=== PATIENT | male | born 1930 | race Two or more races ===

== ENCOUNTER → 2016-03-01 | Outpatient (CLI) | payer MEDICARE ==
[2015-09-24 15:00] VITALS: BP 120/65
[~2016-03-01] MED LIST: CEPH-264 PO; CHOL100017 PO; HYDR-2679 PO; LANS1COM PO; PANT40TA5 PO; SULI200T2 PO; TAMS0.4C2 PO; TRAM50TA PO; TRIA1TAB3 PO
[2016-03-01 15:14] LABS: CALCIUM 8.5 mg/dL (8.5-10.1); CREATININE 1.9 mg/dL (0.7-1.3); POTASSIUM 3.4 mmol/L (3.5-5.1)
== END | disposition home or self-care (01) ==
LOC: LAB 14:26
PROVIDERS: ATTEND Nurse Practitioner Occupational Health
DX: N30.80 Other cystitis without hematuria (principal)
CPT/HCPCS: 36415; 80048

== ENCOUNTER 2016-04-10 08:24 | Inpatient (IN) | payer MEDICARE ==
[~2016-04-10] VITALS: Ht 172.7 cm; Wt 104.3 kg
[~2016-04-10 08:24] MED LIST changes: +CEFAZOLIN 1GM IVPB FOR OMNI 50 ML IV PRN; +FENTANYL PF 100 MCG/2 ML VIAL. IV PRN; +HYDROMORPHONE 2 MG/ML VIAL. IV PRN; +IV RINGERS,LACTATED 1000ML 1,000 ML IV SCH; +LIDOCAINE 1% 1 ML SYRINGE. ID PRN; +MORPHINE SULFATE 2 MG/ML DISP.SYRIN. IV PRN; +ONDANSETRON PF 4 MG/2 ML VIAL. IV PRN; +PROCHLORPERAZINE 10 MG/2 ML VIAL. IV PRN
[2016-04-10] MEDS ORDERED: PROPOFOL 20 ML IV ONE (08:53)
[2016-04-10] MEDS ORDERED: FENTANYL PF 100 MCG/2 ML VIAL. ONE (08:53)
[2016-04-10] MEDS ORDERED: LIDOCAINE 2% 100 MG/5 ML DISP.SYRIN. ONE (08:53)
--- NOTE | 2016-04-10 09:14 | PDOC ---
BRIEF OPERATIVE NOTE Date: Apr 10, 2016 Pre-Op Diagnosis BLE heel wounds Post-Op Diagnosis same Procedure Performed I and D; VAC to Bilateral heel wounds Surgeon Arthur Sousa Anesthesiologist [employer] Anesthesia Type: General Blood Loss 25mL Findings wound size dictated in op report Complications none BASSAM INFANTE II, MD Apr 10, 2016 09:14
[2016-04-10] MEDS ORDERED: HYDROCODONE/APAP 7.5/325MG TABLET. PO PRN (09:15)
[2016-04-10] MEDS ORDERED: MORPHINE SULFATE 2 MG/ML DISP.SYRIN. IV PRN (09:15)
[2016-04-10] MEDS ORDERED: MORPHINE SULFATE 4 MG/ML DISP.SYRIN. IV PRN (09:15)
[2016-04-10] MEDS ORDERED: CEFAZOLIN 2GM PREMIX 50 ML IV SCH (09:15)
[2016-04-10] MEDS ORDERED: DEXTROSE 50% 25 GM / 50ML DISP.SYRIN. IV PRN (09:15)
[2016-04-10] MEDS ORDERED: FENTANYL PF 100 MCG/2 ML VIAL. IV PRN (09:15)
[2016-04-10] MEDS ORDERED: VANCOMYCIN 1 GM in IV NORMAL SALINE 250ML 250 ML IV SCH (09:15)
[2016-04-10] MEDS ORDERED: ONDANSETRON PF 4 MG/2 ML VIAL. IV PRN (09:15)
[2016-04-10] MEDS ORDERED: POLYETHYLENE GLYCOL 3350 17 GM PACKET. PO PRN (09:15)
[2016-04-10] MEDS ORDERED: EPHEDRINE PF IN SALINE 50 MG/5 ML DISP.SYRIN. IV ONE (10:10)
[2016-04-10] MEDS ORDERED: SEVOFLURANE 16 TO 30 MINUTES. IH ONE (10:10)
[2016-04-10] MEDS ORDERED: VANCOMYCIN 2 GM in IV NORMAL SALINE 500ML BAG 500 ML IV ONE (14:00)
[2016-04-10 15:00] VITALS: BP 117/57
[2016-04-10] MEDS: SENNOSIDES/DOCUSATE 8.6/50MG TABLET. PO SCH (15:37)
[2016-04-10] MEDS: VANCOMYCIN PER PHARMACY MC PRN (15:47)
--- NOTE | 2016-04-10 17:06 | OP ---
DATE OF SURGERY: 04/10/2016 SURGEON: Uday Infante MD AUDIO/VIDEO TECHNICIAN: Leonarda Sousa. ANESTHESIA: General. PREOPERATIVE DIAGNOSIS: Bilateral heel wounds. POSTOPERATIVE DIAGNOSIS: Bilateral heel wounds. PROCEDURE PERFORMED: Irrigation and debridement of bilateral heel wounds, right was 5 cm x 6 cm x 1 cm deep, left was 4.5 cm x 5 cm x 1 cm deep. Wounds went down through fascia, but not to bone. BLOOD LOSS: 25 mL. SPECIMENS: Tissue and culture swabs were taken from each heel wound and sent off for culture. COMPLICATIONS: None. REASON FOR PROCEDURE: The patient is a very pleasant gentleman who I was asked to see in the wound care clinic for his full thickness heel wounds that developed. He had been receiving home health care and dressing changes. Unfortunately, he has progressed to full thickness areas of skin necrosis. I had a discussion with he and his daughter about the risks, benefits, alternatives of proceeding with the above surgery. DESCRIPTION OF PROCEDURE: The patient was greeted in the preoperative area by myself with the correct extremity sites were marked and verified. He was taken back to the operative suite. Antibiotics were held until after cultures. Now once in the OR, he was transferred gently supine to the OR table and secured to the bed with all pressure points padded. He had successful induction of general anesthesia. We then proceeded to prep and drape bilateral lower extremities with Betadine paint in our usual sterile fashion. We then conducted a standard preoperative timeout. I then began on the right side and used a combination of sharp excision as well as small rongeur and curette to debride the necrotic areas. These did not go down to bone. I performed the same on the left heel wound. After removing the necrotic appearing tissue, each wound was irrigated with 1500 mL of sterile normal saline. I then took my culture samples at that time. After this, I then fashioned the wound VAC sponge and used strips of the VAC adhesive to secure the VAC sponge in the wound bed at bilateral heels. I then created a small channel, one over his medial ankle for the suction tubing for the wound VAC. The wound VACs were turned on and I placed a couple more adhesive strips to ensure I had a good seal. After this was accomplished, we took down the drapes and cleansed his bilateral lower extremities. He was then awakened from anesthesia and transferred gently supine to the recovery room cart. All counts reported as correct x 2. No complications. Postop plan is to admit him to the floor. We will work on outpatient approval for the wound VACs. I did ask his primary care doctor to come by to assist with his postoperative management as well as Infectious Disease. UDAY INFANTE MD DR: PATTI/pam JOB#: [id number] / [id number] KEYUR
[2016-04-10 19:00] VITALS: BP 114/58
[2016-04-10] MEDS: OXYCODONE IR 5 MG TABLET. PO PRN (20:57)
[2016-04-10 23:24] VITALS: BP 124/64
[2016-04-11] VITALS (7 sets, daily range): BP systolic 99–132; BP diastolic 50–84
[2016-04-11] MEDS ORDERED: MAGNESIUM HYDROXIDE 2,400 MG/30 ML ORAL.SUSP. PO PRN (06:00)
[2016-04-11 07:12] LABS: HEMATOCRIT 27.5 % (39.0-53.0); HEMOGLOBIN 8.9 g/dL (13.0-17.5)
[2016-04-11] MEDS: SENNOSIDES/DOCUSATE 8.6/50MG TABLET. PO SCH (08:04)
[2016-04-11] MEDS: OXYCODONE IR 5 MG TABLET. PO PRN (08:04)
[2016-04-11] MEDS: ASPIRIN 325 MG TABLET PO SCH (08:04)
--- NOTE | 2016-04-11 08:32 | PDOC ---
ORTHO PROGRESS NOTES Subjective Little pain. No CP, SOB, cough. Tolerating diet. Vitals Vital Signs Date Time Temp Pulse Resp B/P Pulse Ox O2 Delivery O2 Flow Rate FiO2 04/11/16 08:04 14 04/11/16 07:00 97.7 58 110/52 98 Room Air 97.7 04/11/16 03:00 8.0 Labs Laboratory Tests Test 04/11/16 06:55 Hemoglobin 8.9g/dL (13.0-17.5) Hematocrit 27.5% (39.0-53.0) Mean Corpuscular Hemoglobin Concent 32g/dL (31-37) Laboratory Tests Test 04/11/16 06:55 Hemoglobin 8.9g/dL (13.0-17.5) Hematocrit 27.5% (39.0-53.0) Mean Corpuscular Hemoglobin Concent 32g/dL (31-37) Notes GPCs on gram stains A and A BLE: mild edema at ankles VAC in place at heels with good seal wiggles toes toes warm Assessment and Plan Awaiting VAC approval for home will await final cultures appreciate ID and PCP assistance BASSAM INFANTE II, MD Apr 11, 2016 08:32
[2016-04-11] MEDS: MULTIVITAMIN with MINERAL TABLET. PO SCH (09:47)
--- NOTE | 2016-04-11 11:28 | PDOC ---
Infectious Disease Note Vital Sign Vital Signs Vital Signs Date Time Temp Pulse Resp B/P Pulse Ox O2 Delivery O2 Flow Rate FiO2 04/11/16 11:04 97.8 62 18 108/53 98 Room Air 97.8 04/11/16 03:00 8.0 Labs Lab Laboratory Tests Test 04/11/16 06:55 Hemoglobin 8.9g/dL (13.0-17.5) Hematocrit 27.5% (39.0-53.0) Mean Corpuscular Hemoglobin Concent 32g/dL (31-37) Objective Assessment Phan calcaneal pressure wounds s/p debridement Sacral decub Debility HTN BPH Plan Plan of Care cont vanc off load both heels and sacrum pt need to go to rehab, is alone at home (daughter works ), is not going to be able to effective off load HEATHER HASKINS MD Apr 11, 2016 11:28
[2016-04-11] MEDS: VANCOMYCIN PER PHARMACY MC PRN (13:23)
[2016-04-11] MEDS ORDERED: VANCOMYCIN 1.5 GM in IV NORMAL SALINE 500ML BAG 500 ML IV SCH (14:00)
[2016-04-11] MEDS ORDERED: BISACODYL 10 MG SUPP.RECT PR PRN (16:00)
[2016-04-12] MEDS: HYDROCODONE/APAP 7.5/325MG TABLET. PO PRN (00:36)
--- NOTE | 2016-04-12 04:36 | CONS ---
DATE OF CONSULTATION: 04/11/2016 REQUESTING PHYSICIAN: Dr. Gibson. REASON FOR CONSULTATION: Bilateral heel wounds infected. HISTORY OF PRESENT ILLNESS: This is an 85-year-old gentleman, with a history of hypertension, debility, arthritis, and benign prostatic hypertrophy. The patient was admitted with bilateral heel wounds, underwent I and D of the bilateral heel wounds, and it was not to the bone. The patient has bilateral heel wound VACs. The patient also has large pressure changes in the sacrococcygeal area and the patient has a chronic Tamez catheter for retention. The patient is currently started on vancomycin and consult has been requested. The patient denies any nausea, vomiting, diarrhea. Denies any chest pain, shortness of breath, abdominal pain, urinary symptoms or bowel symptoms. PAST MEDICAL HISTORY: Positive for hypertension, osteoarthritis with bilateral knee replacement done, bilateral heel wounds. He has not walked for 1 month. He says although he is alone at home when daughter goes to work and he says he walks with a walker to go to the bathroom, etc. SOCIAL HISTORY: Negative for smoking, alcohol, illicit drug use. ALLERGIES: No known drug allergies. CURRENT MEDICATIONS: Reviewed. The patient is on vancomycin. REVIEW OF SYSTEMS: Mostly per the HPI. All other systems reviewed are negative. PHYSICAL EXAMINATION: GENERAL: Alert, oriented gentleman, not in any distress. VITAL SIGNS: Stable, afebrile. HEENT: NAD. NECK: Supple, no JVP, no lymphadenopathy. LUNGS: Clear. HEART: S1, S2 regular. ABDOMEN: Benign. EXTREMITIES: No edema or cyanosis. The patient does have bilateral heel wounds, now with a wound VAC in place. Extensive skin breakdown with pressure changes on sacrococcygeal area. SKIN: Rest of the skin examination unremarkable. NEUROLOGIC: Intact. LABORATORY DATA: White count is normal. BUN 24, creatinine 1.9. Urinalysis: 11-20 wbc's. Heel culture is growing Gram-positive cocci. IMPRESSION: 1. Bilateral heel wounds, pressure wounds, with infection, status post debridement. It is not to the bone as per the operative report. 2. Sacral decubitus, extensive. 3. Debility. 4. Hypertension. 5. Benign prostatic hypertrophy. RECOMMENDATIONS: I would continue vancomycin for the time being, although with the caution of having renal insufficiency as soon as tomorrow we know whether is Staph aureus or MRSA. If not, then we will change. The patient needs a wound VAC offload to the both heels as well as to the sacrococcygeal area. That requires that he will not be able to do much at home and being alone when daughter goes to work; may not be a proper situation unless they have a lot more help at home. We will continue to follow. Thank you very much, Dr. Gibson, for giving me the opportunity to participate in this patient's care. HEATHER HASKINS MD DR: MARIE/pam JOB#: [id number] / [id number]
[2016-04-12 07:00] VITALS: BP 110/53
[2016-04-12] MEDS: ASPIRIN 325 MG TABLET PO SCH (08:14)
[2016-04-12] MEDS: SENNOSIDES/DOCUSATE 8.6/50MG TABLET. PO SCH (08:14)
[2016-04-12] MEDS: MULTIVITAMIN with MINERAL TABLET. PO SCH (08:14)
[2016-04-12 11:03] VITALS: BP 97/44
--- NOTE | 2016-04-12 11:14 | PDOC ---
Infectious Disease Note Subjective Subjective feeling ok ROS ROS no n/v/d/pain Vital Sign Vital Signs Vital Signs Date Time Temp Pulse Resp B/P Pulse Ox O2 Delivery O2 Flow Rate FiO2 04/12/16 11:03 97.4 60 18 97/44 96 Room Air 97.4 Physical Exam PHYSICAL EXAM GENERAL: NAD, Alert HEENT: PERRL, OC/OP NECK: Supple, no JVD, no LN LUNGS: Clear HEART: S1S2, no gallop, no murmur ABD: Soft, NT, no organomegaly, no rebound EXT: No edema, no cyanosis phan calcaneal wounds OCCUPATIONAL THERAPY INSTRUCTOR: Alert, oriented x 3, no focal neurologic deficit SKIN: No rash,,sacral wound IV: ok Objective Assessment Phan calcaneal pressure wounds s/p debridement Sacral decub Debility HTN BPH Plan Plan of Care change antibiotics to po vantin off load both heels and sacrum pt need to go to rehab, is alone at home (daughter works ), is not going to be able to effective off load pt refuses to go to rehab, this wounds will not heal with what pt does at home ( not doing off load ) HEATHER HASKINS MD Apr 12, 2016 11:14
[2016-04-12] MEDS: CEFPODOXIME PROXETIL 100 MG TABLET PO SCH ×2 (12:29→21:05)
[2016-04-12 14:18] LABS: CREATININE 1.6 mg/dL (0.7-1.3); GFR 41.5
[2016-04-12 14:42] VITALS: BP 100/59
[2016-04-12 19:00] VITALS: BP 105/50
--- NOTE | 2016-04-12 20:28 | PDOC ---
ORTHO PROGRESS NOTES Subjective Doing well, no complaints Vitals Vital Signs Date Time Temp Pulse Resp B/P Pulse Ox O2 Delivery O2 Flow Rate FiO2 04/12/16 19:00 97.8 76 18 105/50 96 Room Air 97.8 Labs Laboratory Tests Test 04/11/16 06:55 04/12/16 13:25 Hemoglobin 8.9g/dL (13.0-17.5) Hematocrit 27.5% (39.0-53.0) Mean Corpuscular Hemoglobin Concent 32g/dL (31-37) Creatinine 1.6mg/dL (0.7-1.3) Estimated GFR (Cockcroft-Gault) 41.5 Laboratory Tests Test 04/12/16 13:25 Creatinine 1.6mg/dL (0.7-1.3) Estimated GFR (Cockcroft-Gault) 41.5 Notes Cxs reviewed A and A BLE: no new wounds VAC in place Assessment and Plan placement VAC approval pending BASSAM INFANTE II, MD Apr 12, 2016 20:28
[2016-04-12 23:30] VITALS: BP 120/49
[2016-04-13 03:28] VITALS: BP 113/56
[2016-04-13 07:00] VITALS: BP 111/48
--- NOTE | 2016-04-13 09:07 | PDOC ---
ORTHO PROGRESS NOTES Subjective Little pain, no new complaints. Vitals Vital Signs Date Time Temp Pulse Resp B/P Pulse Ox O2 Delivery O2 Flow Rate FiO2 04/13/16 07:00 97.8 53 16 111/48 96 Room Air 97.8 04/12/16 20:00 8.0 Labs Laboratory Tests Test 04/12/16 13:25 Creatinine 1.6mg/dL (0.7-1.3) Estimated GFR (Cockcroft-Gault) 41.5 Laboratory Tests Test 04/12/16 13:25 Creatinine 1.6mg/dL (0.7-1.3) Estimated GFR (Cockcroft-Gault) 41.5 Notes A and A BLE: VAc in place with good seal Assessment and Plan awaiting VAc approval and placement BASSAM INFANTE II, MD Apr 13, 2016 09:07
--- NOTE | 2016-04-13 09:47 | PDOC ---
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
[2016-04-13] MEDS: CEFPODOXIME PROXETIL 100 MG TABLET PO SCH ×2 (09:51→19:55)
[2016-04-13] MEDS: MULTIVITAMIN with MINERAL TABLET. PO SCH (09:51)
[2016-04-13] MEDS: ASPIRIN 325 MG TABLET PO SCH (09:51)
[2016-04-13] MEDS: SENNOSIDES/DOCUSATE 8.6/50MG TABLET. PO SCH (09:56)
[2016-04-13 11:14] VITALS: BP 112/48
[2016-04-13 15:00] VITALS: BP 115/50
[2016-04-13 19:00] VITALS: BP 115/54
[2016-04-13 23:00] VITALS: BP 124/67
[2016-04-14 07:36] VITALS: BP 115/53
--- NOTE | 2016-04-14 08:27 | DISCH ---
DISCHARGE INSTRUCTIONS Condition on Discharge Condition on Discharge: Stable Activity After Discharge Activity Instructions for Disc: Other, see below Other activity instructions: avoid unnecessary walking Diet after Discharge Diet after Discharge: Regular Wound Incision Care Wound/Incision Care: Keep wound elevated, Other, see below Other wound/incision instructi: wound VAC changes 2-3 times per week Contacting the DRBrenda after DC Call your doctor for: Concerns you may have Follow-Up Follow up with: Arthur in 10-12 days BASSAM INFANTE II, MD Apr 14, 2016 08:27
--- NOTE | 2016-04-14 08:29 | PDOC ---
ORTHO PROGRESS NOTES Subjective Some pain with repositioning, but otherwise no new complaints. Vitals Vital Signs Date Time Temp Pulse Resp B/P Pulse Ox O2 Delivery O2 Flow Rate FiO2 04/14/16 07:36 97.7 62 17 115/53 98 Room Air 97.7 04/13/16 20:00 8.0 Labs Laboratory Tests Test 04/12/16 13:25 Creatinine 1.6mg/dL (0.7-1.3) Estimated GFR (Cockcroft-Gault) 41.5 Notes A and A BLE: no new edema VAC in place at heels with good seal Assessment and Plan awaiting placement and VAC approval, OK to go otherwise BASSAM INFANTE II, MD Apr 14, 2016 08:29
[2016-04-14] MEDS: MULTIVITAMIN with MINERAL TABLET. PO SCH (08:39)
[2016-04-14] MEDS: ASPIRIN 325 MG TABLET PO SCH (08:39)
[2016-04-14] MEDS: CEFPODOXIME PROXETIL 100 MG TABLET PO SCH ×2 (08:39→21:13)
[2016-04-14] MEDS: SENNOSIDES/DOCUSATE 8.6/50MG TABLET. PO SCH (08:39)
--- NOTE | 2016-04-14 10:34 | PDOC ---
Infectious Disease Note Subjective Subjective feeling ok ROS ROS GEN: Denies fevers, chills, sweats HEENT: Denies blurred vision, sore throat CV: Denies chest pain RESP: Denies shortness of air, cough GI: Denies n/v/d NEURO: Denies confusion, dizziness MSK: Denies weakness, joint pain/swelling Vital Sign Vital Signs Vital Signs Date Time Temp Pulse Resp B/P Pulse Ox O2 Delivery O2 Flow Rate FiO2 04/14/16 08:00 Room Air 04/14/16 07:36 97.7 62 17 115/53 98 97.7 04/13/16 20:00 8.0 Physical Exam PHYSICAL EXAM GENERAL: NAD, Alert HEENT: PERRL, OC/OP NECK: Supple, no JVD, no LN LUNGS: Clear HEART: S1S2, no gallop, no murmur ABD: Soft, NT, no organomegaly, no rebound EXT: No edema, no cyanosis 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
[2016-04-14 11:25] VITALS: BP 121/62
[2016-04-14 14:59] VITALS: BP 100/38
[2016-04-14 19:00] VITALS: BP 105/43
[2016-04-14 23:00] VITALS: BP 121/68
[2016-04-15 03:00] VITALS: BP 118/59
[2016-04-15 07:00] VITALS: BP 128/58
[2016-04-15] MEDS: CEFPODOXIME PROXETIL 100 MG TABLET PO SCH ×2 (08:36→21:10)
[2016-04-15] MEDS: ASPIRIN 325 MG TABLET PO SCH (08:37)
[2016-04-15] MEDS: SENNOSIDES/DOCUSATE 8.6/50MG TABLET. PO SCH (08:37)
[2016-04-15] MEDS: MULTIVITAMIN with MINERAL TABLET. PO SCH (08:37)
--- NOTE | 2016-04-15 10:21 | PDOC ---
ORTHO PROGRESS NOTES Subjective No complaints. No acute events Vitals Vital Signs Date Time Temp Pulse Resp B/P Pulse Ox O2 Delivery O2 Flow Rate FiO2 04/15/16 07:00 98.0 63 22 128/58 98 Room Air 98.0 Notes A and A BLE: edema unchanged VAC in place with good seal at heels Assessment and Plan awaiting placement, ok to go once bed available BASSAM INFANTE II, MD Apr 15, 2016 10:21
[2016-04-15 11:00] VITALS: BP 92/60
[2016-04-15 15:00] VITALS: BP 116/74
[2016-04-15 19:59] VITALS: BP 124/61
[2016-04-15] MEDS: HYDROCODONE/APAP 7.5/325MG TABLET. PO PRN (21:10)
[2016-04-15 23:59] VITALS: BP 102/43
[2016-04-16 03:59] VITALS: BP 110/47
[2016-04-16 07:00] VITALS: BP 92/60
[2016-04-16] MEDS: ASPIRIN 325 MG TABLET PO SCH (08:33)
[2016-04-16] MEDS: CEFPODOXIME PROXETIL 100 MG TABLET PO SCH ×2 (08:33→21:01)
[2016-04-16] MEDS: MULTIVITAMIN with MINERAL TABLET. PO SCH (08:33)
[2016-04-16] MEDS: SENNOSIDES/DOCUSATE 8.6/50MG TABLET. PO SCH (08:33)
--- NOTE | 2016-04-16 10:04 | PDOC ---
ORTHO PROGRESS NOTES Subjective No complaints. Vitals Vital Signs Date Time Temp Pulse Resp B/P Pulse Ox O2 Delivery O2 Flow Rate FiO2 04/16/16 07:00 97.4 78 22 92/60 98 Room Air 97.4 Notes Resting, awakens BLE: no edema VAC in place with good seal Assessment and Plan awaiting placement BASSAM INFANTE II, MD Apr 16, 2016 10:04
[2016-04-16 11:00] VITALS: BP 120/63
[2016-04-16 14:37] VITALS: BP 94/62
[2016-04-16 19:00] VITALS: BP 110/53
[2016-04-16 23:00] VITALS: BP 115/54
[2016-04-17] VITALS (7 sets, daily range): BP systolic 115–144; BP diastolic 48–61
[2016-04-17] MEDS: MULTIVITAMIN with MINERAL TABLET. PO SCH (08:10)
[2016-04-17] MEDS: ASPIRIN 325 MG TABLET PO SCH (08:10)
[2016-04-17] MEDS: SENNOSIDES/DOCUSATE 8.6/50MG TABLET. PO SCH (08:10)
[2016-04-17] MEDS: CEFPODOXIME PROXETIL 100 MG TABLET PO SCH ×2 (08:10→21:22)
[2016-04-17] MEDS: HYDROCODONE/APAP 7.5/325MG TABLET. PO PRN ×2 (11:19→21:25)
[2016-04-18 03:00] VITALS: BP 106/55
[2016-04-18 07:00] VITALS: BP 115/52
--- NOTE | 2016-04-18 08:14 | PDOC ---
ORTHO PROGRESS NOTES Subjective No complaints, pain ok Vitals Vital Signs Date Time Temp Pulse Resp B/P Pulse Ox O2 Delivery O2 Flow Rate FiO2 04/18/16 07:00 97.7 55 18 115/52 94 Room Air 97.7 04/17/16 12:19 8.0 Notes A and A BLE: edema unchanged VAC in place with good seal Assessment and Plan home with [facility] today BASSAM INFANTE II, MD Apr 18, 2016 08:14
[2016-04-18] MEDS: MULTIVITAMIN with MINERAL TABLET. PO SCH (09:44)
[2016-04-18] MEDS: ASPIRIN 325 MG TABLET PO SCH (09:44)
[2016-04-18] MEDS: SENNOSIDES/DOCUSATE 8.6/50MG TABLET. PO SCH (09:44)
[2016-04-18] MEDS: CEFPODOXIME PROXETIL 100 MG TABLET PO SCH (09:44)
[2016-04-18 10:36] VITALS: BP 129/81
--- NOTE | 2016-04-18 12:57 | PDOC3 ---
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 Schmidt is a 85 old male who was asked to see in consultation down in the wound care clinic. After reviewing the radiographic evidence and performing physical examination a discussion with him and his daughter about proceeding with a formal irrigation and debridement in the operating room with application of wound VAC. They agreed. He tolerated surgery well recovered well from anesthesia. He was taken up to the surgical for for care and observation. Infectious disease was consulted and managed his antibiotics. We will follow his cultures. His hospital course was uneventful. He was in the hospital 8 days secondary to placement and wound VAC for home use issues. He remained hemodynamically stable and afebrile. His pain was controlled on oral pain medicine. His sacral wound had improved in appearance. He received wound VAC changes every other day with our wound care team. He was having normal bowel and bladder function. Discharge Information Condition at Discharge: Stable Follow Up: Weeks Disposition/Orders: D/C to Home w/ HH No Active Prescriptions or Reported Meds Patient Instructions Patient Instructions He'll be discharged home with home healthcare. Home health care will be necessary for wound VAC changes. He'll follow-up at the wound care clinic as well as myself in approximately 2 weeks' time. BASSAM INFANTE II, MD Apr 18, 2016 12:57
[2016-04-18 15:07] VITALS: BP 113/52
[2016-04-18] MEDS ORDERED: HYDR-2679 PO (16:11)
--- NOTE | 2016-04-18 18:18 | HP ---
ADMIT DATE: 04/10/2016 CHIEF COMPLAINT: Bilateral heel wounds. HISTORY OF PRESENT ILLNESS: The patient is a very pleasant 85-year-old gentleman with a history of hypertension, who developed heel wounds over a month ago. He was seen and managed in the outpatient wound care clinic, but they felt due to the depth of the wounds and recalcitrant that formal I and D will be necessary. I had a discussion of this with the patient and his daughter, and they elected to proceed. PAST MEDICAL HISTORY: 1. Hypertension. 2. Osteoarthritis. 3. Bilateral total knees. 4. Bilateral heel wounds. 5. Sacral pressure sore. SOCIAL HISTORY: No alcohol or tobacco. He does not ambulate much at all but will walk with a walker to go to the rest room occasionally. ALLERGIES: ____ MEDICATIONS: 1. Cefpodoxime. 2. Multivitamin. 3. Aspirin. 4. Senokot. 5. Lortab. 6. Oxycodone p.r.n. REVIEW OF SYSTEMS: Twelve point review of systems negative except as per HPI. PHYSICAL EXAMINATION: GENERAL: The patient is alert and oriented, in no acute distress. Mood and affect are appropriate. He is examined lying in hospital bed. HEENT: Head normocephalic, atraumatic. Extraocular muscles are intact. CARDIOVASCULAR: Regular rate and rhythm. Dorsalis pedis 1+ and symmetric. RESPIRATIONS: Unlabored with symmetric chest. ABDOMEN: Soft and nondistended. He has a Tamez catheter in place. EXTREMITIES: Examination of bilateral lower extremities reveals full thickness wounds over both heels with wound VACs in place. The wounds go down past fascia. He does have some mild edema of bilateral lower extremities down to the distal third tibial region. IMPRESSION: Bilateral heel wounds. PLAN: He is to be discharged home with home health care. He will need wound VAC changes 3-4 times per week. He will be maintained on antibiotics per Infectious Disease. He will follow up with myself and wound care after this hospitalization. BASSAM INFANTE MD DR: PATTI/pam JOB#: [id number] / [id number] KEYUR
== END 2016-04-18 16:20 | disposition home health service (06) | DRG 570 ==
LOC: SURG 08:24 → 5 SOUTH 12:40
PROVIDERS: ADMIT Orthopaedic Surgery Sports Medicine; ATTEND Orthopaedic Surgery Sports Medicine
PROC: 0JBR0ZZ Excision of Left Foot Subcutaneous Tissue and Fascia, Open Approach (ICD-10-PCS; 2016-04-10)
PROC: 0JBQ0ZZ Excision of Right Foot Subcutaneous Tissue and Fascia, Open Approach (ICD-10-PCS; principal; 2016-04-10 10:05)
DX: L89.624 Pressure ulcer of left heel, stage 4 (principal); I10 Essential (primary) hypertension; Z96.653 Presence of artificial knee joint, bilateral; N40.0 Benign prostatic hyperplasia without lower urinary tract symptoms; Z79.899 Other long term (current) drug therapy; L89.610 Pressure ulcer of right heel, unstageable; L89.159 Pressure ulcer of sacral region, unspecified stage
CPT/HCPCS: 36415; 82565; 85014; 85018; 87071; 87075; 87186; 87205; J0690; J2405; J2704; J3010; J3370; J7040; 97530; 97606

== ENCOUNTER → 2016-05-19 | Outpatient (CLI) | payer MEDICARE ==
[~2016-05-19] MED LIST changes: -CEFAZOLIN 1GM IVPB FOR OMNI 50 ML IV PRN; -FENTANYL PF 100 MCG/2 ML VIAL. IV PRN; -HYDROMORPHONE 2 MG/ML VIAL. IV PRN; -IV RINGERS,LACTATED 1000ML 1,000 ML IV SCH; -LIDOCAINE 1% 1 ML SYRINGE. ID PRN; -MORPHINE SULFATE 2 MG/ML DISP.SYRIN. IV PRN; -ONDANSETRON PF 4 MG/2 ML VIAL. IV PRN; -PROCHLORPERAZINE 10 MG/2 ML VIAL. IV PRN
[2016-05-19 10:00] LABS: BASO # 0.1 x10^3/uL (0.0-0.2); BASO % 1 % (0-3); EOS % 7 % (0-3); HEMATOCRIT 33.1 % (39.0-53.0); HEMOGLOBIN 10.9 g/dL (13.0-17.5); LYMPH # 1.9 x10^3/uL (1.0-4.8); LYMPH % 24 % (24-48); MEAN CORPUSCULAR HEMOGLOBIN 29 pg (25-35); MEAN CORPUSCULAR HGB CONC 33 g/dL (31-37); MEAN CORPUSCULAR VOLUME 87 fL (79-100); MONO % 7 % (0-9); NEUT % 61 % (31-73); PLATELET COUNT 331 x10^3/uL (140-400); RED BLOOD COUNT 3.79 x10^6/uL (4.30-5.70); RED CELL DISTRIBUTION WIDTH 13.4 % (11.5-14.5); WHITE BLOOD COUNT 8.1 x10^3/uL (4.0-11.0)
[2016-05-19 10:18] LABS: CALCIUM 8.8 mg/dL (8.5-10.1); CREATININE 1.6 mg/dL (0.7-1.3); GFR 41.5; POTASSIUM 3.8 mmol/L (3.5-5.1)
== END | disposition home or self-care (01) ==
LOC: PMGWOUND 08:08
PROVIDERS: ATTEND Preventive Medicine Undersea and Hyperbaric Medicine
DX: L89.624 Pressure ulcer of left heel, stage 4 (principal); L89.614 Pressure ulcer of right heel, stage 4; L89.153 Pressure ulcer of sacral region, stage 3; I10 Essential (primary) hypertension; Z87.891 Personal history of nicotine dependence
CPT/HCPCS: 11043; 36415; 80048; 85027; 85651; 87040

== ENCOUNTER → 2016-05-26 | Outpatient (CLI) | payer MEDICARE | END | disposition home or self-care (01) | LOC: PMGWOUND 08:09 | PROVIDERS: ATTEND Preventive Medicine Undersea and Hyperbaric Medicine | DX: L89.153 Pressure ulcer of sacral region, stage 3 (principal); L89.624 Pressure ulcer of left heel, stage 4; L89.614 Pressure ulcer of right heel, stage 4; M86.172 Other acute osteomyelitis, left ankle and foot; I10 Essential (primary) hypertension; Z87.891 Personal history of nicotine dependence | CPT/HCPCS: 11042; 11043; 11046; 97605 ==

== ENCOUNTER → 2016-06-02 | Outpatient (CLI) | payer MEDICARE | END | disposition home or self-care (01) | LOC: PMGWOUND 08:07 | PROVIDERS: ATTEND Preventive Medicine Undersea and Hyperbaric Medicine | DX: L89.624 Pressure ulcer of left heel, stage 4 (principal); L89.614 Pressure ulcer of right heel, stage 4; L89.153 Pressure ulcer of sacral region, stage 3; M86.172 Other acute osteomyelitis, left ankle and foot; I10 Essential (primary) hypertension; Z87.891 Personal history of nicotine dependence | CPT/HCPCS: 97597 ==

== ENCOUNTER → 2016-06-16 | Outpatient (CLI) | payer BC | END | disposition home or self-care (01) | LOC: PMGWOUND 08:29 | PROVIDERS: ATTEND Preventive Medicine Undersea and Hyperbaric Medicine | DX: L89.624 Pressure ulcer of left heel, stage 4 (principal); L89.614 Pressure ulcer of right heel, stage 4; L89.153 Pressure ulcer of sacral region, stage 3; M86.172 Other acute osteomyelitis, left ankle and foot; I10 Essential (primary) hypertension; Z87.891 Personal history of nicotine dependence | CPT/HCPCS: 99215 ==

== ENCOUNTER → 2016-06-23 | Outpatient (CLI) | payer BC | END | disposition home or self-care (01) | LOC: PMGWOUND 08:33 | PROVIDERS: ATTEND Preventive Medicine Undersea and Hyperbaric Medicine | DX: L89.624 Pressure ulcer of left heel, stage 4 (principal); L89.614 Pressure ulcer of right heel, stage 4; M86.172 Other acute osteomyelitis, left ankle and foot; I10 Essential (primary) hypertension; Z87.891 Personal history of nicotine dependence | CPT/HCPCS: 99215 ==

== ENCOUNTER 2016-06-29 09:54 | Day surgery (SDC) | payer BC ==
[~2016-06-29] VITALS: Ht 177.8 cm; Wt 104.3 kg
[~2016-06-29 09:54] MED LIST changes: +HYDROmorphone 2 MG/ML VIAL IV PRN; +IV RINGERS,LACTATED 1000ML 1,000 ML IV SCH; +LIDOCAINE 1% 1 ML SYRINGE. ID PRN; +MORPHINE SULFATE 2 MG/ML DISP.SYRIN. IV PRN; +ONDANSETRON PF 4 MG/2 ML VIAL. IV PRN; +PROCHLORPERAZINE 10 MG/2 ML VIAL. IV PRN; +fentaNYL PF VIAL 100 MCG/2 ML VIAL IV PRN
[2016-06-29] MEDS ORDERED: PROPOFOL 20 ML IV ONE (11:46)
[2016-06-29] MEDS ORDERED: ONDANSETRON PF 4 MG/2 ML VIAL. ONE (11:46)
[2016-06-29] MEDS ORDERED: LIDOCAINE 2% 100 MG/5 ML SYRINGE. ONE (11:46)
[2016-06-29] MEDS ORDERED: DEXAMETHASONE SOD PHOS 20 MG/5 ML VIAL. ONE (11:46)
[2016-06-29] MEDS ORDERED: fentaNYL PF VIAL 100 MCG/2 ML VIAL ONE (11:46)
--- NOTE | 2016-06-29 11:48 | DISCH ---
DISCHARGE INSTRUCTIONS Condition on Discharge Condition on Discharge: Stable Activity After Discharge Activity Instructions for Disc: Other, see below Bathing Instructions: Shower-keep dressing dry Weight Bearing Status after Di: Non weight bearing Diet after Discharge Diet after Discharge: Regular Wound Incision Care Wound/Incision Care: Keep wound/cast CDI, Keep wound elevated, Change dressing Contacting the DRBrenda after DC Call your doctor for: Concerns you may have Follow-Up Follow up with: wound care Follow Up With: Arthur in 2wks BASSAM INFANTE II, MD June 29, 2016 11:48
--- NOTE | 2016-06-29 11:50 | PDOC ---
BRIEF OPERATIVE NOTE Date: June 29, 2016 Pre-Op Diagnosis bilateral heel wounds Post-Op Diagnosis same Procedure Performed I and D, bone biopsies, bilateral heels Surgeon Arthur Anesthesiologist [facility] Anesthesia Type: General Blood Loss 20mL Specimens Obtained bone from each heel for Cx and Path Complications none BASSAM INFANTE II, MD June 29, 2016 11:50
[2016-06-29] MEDS ORDERED: ePHEDrine PF IN SALINE 50 MG/5 ML DISP.SYRIN IV ONE (12:08)
[2016-06-29] MEDS ORDERED: SEVOFLURANE 16 TO 30 MINUTES. IH ONE (12:22)
[2016-06-29] MEDS ORDERED: HYDR-971 PO (13:20)
--- NOTE | 2016-06-29 13:25 | OP ---
DATE OF SURGERY: 06/29/2016 SURGEON: Uday Infante MD TEXTURE ARTIST: None. PREOPERATIVE DIAGNOSIS: Bilateral chronic heel wounds. POSTOPERATIVE DIAGNOSIS: Bilateral chronic heel wounds. PROCEDURE PERFORMED: 1. Bone biopsy, bilateral heels. 2. Irrigation and debridement, bilateral heels. SPECIMENS SENT: Bone from each heel was sent for pathology and bone from each heel was sent for culture. COMPLICATIONS: None. ESTIMATED BLOOD LOSS: 20 mL. ANESTHESIA: General. REASON FOR PROCEDURE: The patient is a very pleasant 85-year-old gentleman who I have been following for his bilateral posterior heel wounds. These have had good granulation tissue; however, his infectious disease specialist from wished for repeat biopsies and cultures. I discussed risks, benefits, and alternatives of above surgery with he and his daughter and they elected to proceed. DESCRIPTION OF PROCEDURE: The patient was greeted in the preoperative area by myself. Correct extremity was marked and verified. He was taken to the operative suite and antibiotics were started en route. Once in the OR, he was transferred gently supine to the OR table and secured to the bed with all pressure points padded. After undergoing successful general anesthesia, we then proceeded to prep and drape bilateral lower extremities with Betadine paint. After this, we conducted a standard preoperative timeout. I then began at the right heel using a rongeur, took a sample of bone for culture and for permanent pathology specimen. I then repeated this through his wound at the left heel. We then irrigated these out with a combination of 3000 mL sterile normal saline and used both. We then washed and dried his legs, placed Xeroform, sterile gauze, sterile cast padding and Oj wrap for loose well-padded dressing on both. His wounds do not have any necrotic debris and I did not feel they required much debridement, but I did debride the edges a little bit just down to skin. I used a rongeur and curette for this. At the conclusion of surgery, the patient was transferred gently supine to the recovery room cart and taken to PACU in stable and extubated condition. Postop plan is to follow up on the cultures and pathology specimens. He will be discharged home. It should be noted that after obtaining the bone samples, antibiotics were given. UDAY INFANTE MD DR: PATTI/pam JOB#: [id number] / [id number] KEYUR
[2016-06-29] MEDS ORDERED: HYDROcodone/APAP 5/325MG 1 TAB TABLET PO ONE (13:30)
[2016-06-29 13:45] VITALS: BP 132/39
--- NOTE | 2016-07-03 13:31 | PATHOLOGY ---
PATHOLOGY REPORT * * * * * * * * FINAL DIAGNOSIS: A. Bone biopsy, left heel: - Segment of viable bone-no evidence of osteomyelitis. B. Bone biopsy, right heel: - Segment of viable bone-no evidence of osteomyelitis. (JPM:; d/t: 07/03/16) REPORT ELECTRONICALLY SIGNED BY: Renaldo Lara M.D. DATE/TIME: 07/03/2016 13:22 * * * * * * * * GROSS PATHOLOGY: A. The specimen is received in formalin, labeled "Randy Schmidt, bone left heel". Received is a single gritty, pale alanis segment of bone measuring 0.4 cm. The specimen is entirely submitted in cassette A1, following decalcification. B. The specimen is received in formalin, labeled "Randy Schmidt, bone right heel". Received is a single gritty, pale alanis segment of bone measuring 0.4 cm. The specimen is entirely submitted in cassette B1, following decalcification. (SNA; 06/30/2016) INITIAL CPT CODE(S): 58381(2), 29503(2) Professional services performed [place] [place] [address] Technical services performed by [facility] at [address] [place] [address], [facility] [address] [address]. SPECIMEN(S) RECEIVED: A.Bone, left heel B.Bone, right heel CLINICAL HISTORY: None provided PATIENT: RANDY SCHMIDT /AGE: [id number] (Age: 85) PATIENT #: [id number] ALT CASE #: SPECIMEN COLLECTION DATE: 06/29/2016 SPECIMEN RECEIVED DATE: 06/29/2016 [facility] - [address] [place] [address] - PHONE: [phone] * * * END OF REPORT * * *
== END 2016-06-29 14:44 | disposition home or self-care (01) ==
LOC: SURG 09:54
PROVIDERS: ATTEND Orthopaedic Surgery Sports Medicine
DX: S90.922A Unspecified superficial injury of left foot, initial encounter (principal); S90.921A Unspecified superficial injury of right foot, initial encounter; I10 Essential (primary) hypertension; E66.9 Obesity, unspecified; M19.90 Unspecified osteoarthritis, unspecified site; D64.9 Anemia, unspecified; F32.9 Major depressive disorder, single episode, unspecified; Z96.653 Presence of artificial knee joint, bilateral
CPT/HCPCS: 20240; 87205; 88304; 88311; J0690; J1100; J2405; J2704; J3010; 87071; 87075

== ENCOUNTER → 2016-07-07 | Outpatient (CLI) | payer BC ==
[2016-06-29 13:45] VITALS: BP 132/39
[~2016-07-07] MED LIST changes: +HYDR-971 PO; -HYDROmorphone 2 MG/ML VIAL IV PRN; -IV RINGERS,LACTATED 1000ML 1,000 ML IV SCH; -LIDOCAINE 1% 1 ML SYRINGE. ID PRN; -MORPHINE SULFATE 2 MG/ML DISP.SYRIN. IV PRN; -ONDANSETRON PF 4 MG/2 ML VIAL. IV PRN; -PROCHLORPERAZINE 10 MG/2 ML VIAL. IV PRN; -fentaNYL PF VIAL 100 MCG/2 ML VIAL IV PRN
== END | disposition home or self-care (01) ==
LOC: PMGWOUND 08:15
PROVIDERS: ATTEND Preventive Medicine Undersea and Hyperbaric Medicine
DX: L89.624 Pressure ulcer of left heel, stage 4 (principal); L89.614 Pressure ulcer of right heel, stage 4; M86.172 Other acute osteomyelitis, left ankle and foot; I10 Essential (primary) hypertension; M19.90 Unspecified osteoarthritis, unspecified site; E66.9 Obesity, unspecified; Z68.35 Body mass index [BMI] 35.0-35.9, adult; Z87.891 Personal history of nicotine dependence
CPT/HCPCS: 99214

== ENCOUNTER → 2016-07-07 | Outpatient (CLI) | payer BC, MEDICARE ==
[2016-06-29 13:45] VITALS: BP 132/39
--- NOTE | 2016-07-07 11:07 | RAD ---
Indication benign prostatic hyperplasia. Axial non-IV contrast images through the abdomen and pelvis were obtained. No prior imaging of the abdomen or pelvis is available.[address] imaging of the abdomen or pelvis is available. There is a moderate right pleural effusion. There is associated volume loss in the right lower lobe most compatible with passive atelectasis associated with the pleural fluid. Underlying pneumonia at the right lung base cannot be entirely excluded. A significant finding involving the liver is not seen. There is a low-density 15 mm mass in the left lobe of the liver most compatible with an incidental cyst. The gallbladder appears grossly normal. The spleen appears unremarkable. The pancreas appears unremarkable. No adrenal masses are seen. There is a calcification in the right renal pelvis which is likely vascular. There is no hydronephrosis or hydroureter on either side. No focal mass or inflammatory process in the abdomen is seen. A Tamez catheter is noted in the pelvis. The prostate does not appear enlarged. There are degenerative changes in the lumbar spine likely with an associated component of spinal stenosis. IMPRESSION: No acute finding seen in the abdomen or pelvis. Moderate right pleural effusion with associated atelectasis. Chronic musculoskeletal changes PQRS Compliance Statement: One or more of the following individualized dose reduction techniques were utilized for this examination: 1. Automated exposure control 2. Adjustment of the mA and/or kV according to patient size 3. Use of iterative reconstruction technique
== END | disposition home or self-care (01) ==
LOC: CT 09:29
PROVIDERS: ATTEND Nurse Practitioner Occupational Health
DX: J90 Pleural effusion, not elsewhere classified (principal); J98.11 Atelectasis
CPT/HCPCS: 74176

== ENCOUNTER → 2016-07-12 | Outpatient (CLI) | payer BC, MEDICARE ==
[2016-06-29 13:45] VITALS: BP 132/39
--- NOTE | 2016-07-12 08:44 | RAD ---
Examination: Ultrasound bilateral lower extremity arterial duplex History: History of exposed bone on bilateral heels, ulcers Comparison: None available Technique: Grayscale, color Doppler 2-D, spectral waveform analysis of the bilateral lower extremity ultrasound Findings: Triphasic and biphasic waveforms identified in the bilateral lower extremity arterial system. There is mild atherosclerotic calcification identified throughout the visualized bilateral lower extremity arterial system. No focal elevated velocities identified in the bilateral lower extremity arterial system. Impression: 1. No evidence of hemodynamically significant stenosis. 2. Mild atherosclerotic calcifications identified in the bilateral lower extremity arterial system.
== END | disposition home or self-care (01) ==
LOC: US 07:29
PROVIDERS: ATTEND Family Medicine
DX: L97.429 Non-pressure chronic ulcer of left heel and midfoot with unspecified severity (principal); L97.419 Non-pressure chronic ulcer of right heel and midfoot with unspecified severity; I70.203 Unspecified atherosclerosis of native arteries of extremities, bilateral legs
CPT/HCPCS: 93925

== ENCOUNTER → 2016-07-12 | Outpatient (CLI) | payer BC, MEDICARE ==
[2016-06-29 13:45] VITALS: BP 132/39
== END | disposition home or self-care (01) ==
LOC: PMGWOUND 08:04
PROVIDERS: ATTEND Preventive Medicine Undersea and Hyperbaric Medicine
DX: L89.624 Pressure ulcer of left heel, stage 4 (principal); L89.614 Pressure ulcer of right heel, stage 4; M86.172 Other acute osteomyelitis, left ankle and foot; I10 Essential (primary) hypertension; Z96.653 Presence of artificial knee joint, bilateral; Z87.891 Personal history of nicotine dependence
CPT/HCPCS: 97605

== ENCOUNTER → 2016-08-09 | Outpatient (CLI) | payer BC ==
[~2016-08-09] MED LIST changes: -LANS1COM PO; +LANS1COM3 PO
== END | disposition home or self-care (01) ==
LOC: PMGWOUND 12:49
PROVIDERS: ATTEND Preventive Medicine Undersea and Hyperbaric Medicine
DX: L89.624 Pressure ulcer of left heel, stage 4 (principal); L89.614 Pressure ulcer of right heel, stage 4; M86.172 Other acute osteomyelitis, left ankle and foot; I10 Essential (primary) hypertension; E66.9 Obesity, unspecified; Z68.35 Body mass index [BMI] 35.0-35.9, adult; F32.9 Major depressive disorder, single episode, unspecified; M19.90 Unspecified osteoarthritis, unspecified site; Z87.891 Personal history of nicotine dependence
CPT/HCPCS: 99214

== ENCOUNTER → 2016-08-23 | Outpatient (CLI) | payer BC | END | disposition home or self-care (01) | LOC: PMGWOUND 08:09 | PROVIDERS: ATTEND Preventive Medicine Undersea and Hyperbaric Medicine | DX: L89.624 Pressure ulcer of left heel, stage 4 (principal); L89.614 Pressure ulcer of right heel, stage 4; M86.172 Other acute osteomyelitis, left ankle and foot; I10 Essential (primary) hypertension; F32.9 Major depressive disorder, single episode, unspecified; E66.9 Obesity, unspecified; Z68.35 Body mass index [BMI] 35.0-35.9, adult; M19.90 Unspecified osteoarthritis, unspecified site; Z87.891 Personal history of nicotine dependence | CPT/HCPCS: 99214 ==

== ENCOUNTER 2016-09-25 10:08 | Emergency (ER) | payer BC ==
--- NOTE | 2016-09-25 10:15 | PHYS DOC ---
Past Medical History Past Medical History: Arthritis Additional Past Medical Histor: pt is poor historian Past Surgical History: Other Additional Past Surgical Histo: prostate, bilat knee, lower back Alcohol Use: None Drug Use: None Adult General Chief Complaint Chief Complaint: URINE CATHETER PROBLEM HPI HPI Patient is a 86 year old male who presents with nausea and suprapubic pain. He has a Tamez catheter in approximately a week ago the bag turned purple and they're concerned about a urinary tract infection but he didn't have any symptoms of bag was changed to turn purple again. Last night he started complaining of superpubic pain and vomited one to 2 times. He denies any blood in his vomit. According the daughter who helps with the history he ate dinner yesterday. Review of Systems Review of Systems Constitutional: Denies fever or chills [] Eyes: Denies change in visual acuity, redness, or eye pain [] HENT: Denies nasal congestion or sore throat [] Respiratory: Denies cough or shortness of breath [] Cardiovascular: No additional information not addressed in HPI [] GI: Denies abdominal pain, nausea, vomiting, bloody stools or diarrhea [] : Denies dysuria or hematuria [] Musculoskeletal: Denies back pain or joint pain [] Integument: Denies rash or skin lesions [] Neurologic: Denies headache, focal weakness or sensory changes [] Endocrine: Denies polyuria or polydipsia [] Current Medications Current Medications Current Medications Medications (Trade) Dose Ordered Sig/Summer Start Time Stop Time Status Last Admin Dose Admin Ceftriaxone Sodium 50 ml @ 100 mls/hr 1X ONCE 09/25/16 12:15 09/25/16 12:44 DC 09/25/16 12:25 100 MLS/HR Morphine Sulfate 2 mg PRN Q15MIN PRN 09/25/16 11:00 09/26/16 10:59 09/25/16 11:04 2 MG Sodium Chloride 1,000 ml @ 1,000 mls/hr 1X ONCE 09/25/16 11:00 09/25/16 11:59 DC 09/25/16 11:04 1,000 MLS/HR Allergies Allergies Allergies Coded Allergies Type Severity Reaction Last Updated Verified No Known Drug Allergies 06/29/16 No Physical Exam Physical Exam Constitutional: Well developed, well nourished, no acute distress, non-toxic appearance. [] HENT: Normocephalic, atraumatic, bilateral external ears normal, oropharynx moist, no oral exudates, nose normal. [] Eyes: PERRLA, EOMI, conjunctiva normal, no discharge. [] Neck: Normal range of motion, no tenderness, supple, no stridor. [] Cardiovascular:Heart rate regular rhythm, no murmur [] Lungs & Thorax: Bilateral breath sounds clear to auscultation [] Abdomen: Bowel sounds normal, soft, no tenderness, no masses, no pulsatile masses. Tamez catheter in place with pungent smell. Skin: Warm, dry, no erythema, no rash. [] Back: No tenderness, no CVA tenderness. [] Extremities: No tenderness, no cyanosis, no clubbing, ROM intact, no edema. [] Neurologic: Alert and oriented X 3, normal motor function, normal sensory function, no focal deficits noted. [] Psychologic: Affect normal, judgement normal, mood normal. [] Current Patient Data Vital Signs Vital Signs Date Time Temp Pulse Resp B/P (MAP) Pulse Ox O2 Delivery O2 Flow Rate FiO2 09/25/16 12:30 78 117/57 (77) 99 Room Air 09/25/16 10:20 98.0 22 98.0 Lab Values Laboratory Tests Test 09/25/16 10:33 09/25/16 11:00 Urine Collection Type Unknown Urine Color Red Urine Clarity Turbid Urine pH 7.5 Urine Specific [place] 1.015 Urine Protein >=300 mg/dL (NEG-TRACE) Urine Glucose (UA) Negative mg/dL (NEG) Urine Ketones (Stick) Trace mg/dL (NEG) Urine Blood Large (NEG) Urine Nitrite Negative (NEG) Urine Bilirubin Negative (NEG) Urine Urobilinogen Dipstick 0.2 mg/dL (0.2 mg/dL) Urine Leukocyte Esterase Large (NEG) Urine RBC Fobs /HPF (0-2) Urine WBC Tntc /HPF (0-4) Urine Squamous Epithelial Cells Occ /LPF Urine Bacteria Few /HPF (0-FEW) White Blood Count 11.9 x10^3/uL (4.0-11.0) H Red Blood Count 4.19 x10^6/uL (4.30-5.70) L Hemoglobin 12.2 g/dL (13.0-17.5) L Hematocrit 36.7 % (39.0-53.0) L Mean Corpuscular Volume 88 fL (79-100) Mean Corpuscular Hemoglobin 29 pg (25-35) Mean Corpuscular Hemoglobin Concent 33 g/dL (31-37) Red Cell Distribution Width 14.2 % (11.5-14.5) Platelet Count 214 x10^3/uL (140-400) Neutrophils (%) (Auto) 95 % (31-73) H Lymphocytes (%) (Auto) 2 % (24-48) L Monocytes (%) (Auto) 2 % (0-9) Eosinophils (%) (Auto) 0 % (0-3) Basophils (%) (Auto) 0 % (0-3) Neutrophils # (Auto) 11.4 x10^3uL (1.8-7.7) H Lymphocytes # (Auto) 0.2 x10^3/uL (1.0-4.8) L Monocytes # (Auto) 0.3 x10^3/uL (0.0-1.1) Eosinophils # (Auto) 0.0 x10^3/uL (0.0-0.7) Basophils # (Auto) 0.0 x10^3/uL (0.0-0.2) Segmented Neutrophils % 71 % (35-66) H Band Neutrophils % 27 % (0-9) H Lymphocytes % 1 % (24-48) L Monocytes % 1 % (0-10) Platelet Estimate Adequate (ADEQUATE) Sodium Level 140 mmol/L (136-145) Potassium Level 4.1 mmol/L (3.5-5.1) Chloride Level 106 mmol/L (98-107) Carbon Dioxide Level 24 mmol/L (21-32) Anion Gap 10 (6-14) Blood Urea Nitrogen 57 mg/dL (8-26) H Creatinine 2.2 mg/dL (0.7-1.3) H Estimated GFR (Cockcroft-Gault) 28.7 Glucose Level 129 mg/dL (70-99) H Calcium Level 8.3 mg/dL (8.5-10.1) L Total Bilirubin 0.6 mg/dL (0.2-1.0) Direct Bilirubin 0.1 mg/dL (0.0-0.2) Aspartate Amino Transferase (AST) 17 U/L (15-37) Alanine Aminotransferase (ALT) 15 U/L (16-63) L Alkaline Phosphatase 91 U/L (46-116) Creatine Kinase 30 U/L (39-308) L Creatine Kinase MB (Mass) < 0.5 ng/mL (0.0-3.6) Creatine Kinase MB Relative Index % (0-4) Total Protein 8.1 g/dL (6.4-8.2) Albumin 3.0 g/dL (3.4-5.0) L Lipase 118 U/L (73-393) Laboratory Tests 09/25/16 11:00 Laboratory Tests 09/25/16 11:00 EKG EKG [] Radiology/Procedures Radiology/Procedures [] Impressions: UTI Elevated creatinine Course & Med Decision Making Course & Med Decision Making Pertinent Labs and Imaging studies reviewed. (See chart for details) Baseline creatinine is 1.6 and days 2.2. He does have a UTI of which she received 1 L normal saline in addition to 1 g of Rocephin. I do not believe he needs to be admitted today as described he is only slightly elevated is not 2 times up her limits of his baseline. 1.6 creatinine was reported in April 2014 and if he can get follow-up within 2 days final discharging him home. I spoke with Dr. Khan who will make sure Dr. Monge follows patient up in 2 days with repeat lab work. Patient being discharged home with his daughter on Cipro 500 mg twice a day for 7 days. Return precautions given. Patient and his daughter is agreeable plan to being discharged in stable condition this time. Dragon Disclaimer Dragon Disclaimer This electronic medical record was generated, in whole or in part, using a voice recognition dictation system. Departure Departure Impression: Primary Impression: UTI (urinary tract infection) Disposition: HOME, SELF-CARE Condition: STABLE Referrals: SCOTTY HAYWARD MD (PCP) Patient Instructions: Urinary Tract Infection Additional Instructions: You have a bladder infection when he taken a Vicodin next 7 days. Scripts Ciprofloxacin Hcl (CIPRO) 500 Mg Tablet 1 TAB PO BID, #14 TAB Prov: ZI MARTINEZ MD 09/25/16 Problem Qualifiers Primary Impression: UTI (urinary tract infection) Urinary tract infection type: acute cystitis Hematuria presence: without hematuria Qualified Codes: N30.00 - Acute cystitis without hematuria ZI MARTINEZ MD Sep 25, 2016 10:15
[2016-09-25 10:41] LABS: BILIRUBIN,URINE NEGATIVE (NEG); GLUCOSE,URINE NEGATIVE (NEG); NITRITE,URINE NEGATIVE (NEG); PH,URINE 7.5; PROTEIN,URINE >=300 mg/dL (NEG-TRACE); UROBILINOGEN,URINE 0.2 mg/dL (0.2 mg/dL)
[2016-09-25 10:53] LABS: RBC,URINE FOBS /HPF (0-2); WBC,URINE TNTC /HPF (0-4)
[2016-09-25 10:56] LABS: BACTERIA,URINE FEW /HPF (0-FEW)
[2016-09-25 10:57] LABS: SQUAMOUS EPITHELIAL CELL,UR OCC /LPF
[2016-09-25] MEDS ORDERED: IV NORMAL SALINE 1000ML BAG 1,000 ML IV ONE (11:00)
[2016-09-25] MEDS ORDERED: MORPHINE SULFATE 2 MG/ML DISP.SYRIN. IV/SQ PRN (11:00)
[2016-09-25 11:23] LABS: BASO % 0 % (0-3); EOS % 0 % (0-3); HEMATOCRIT 36.7 % (39.0-53.0); HEMOGLOBIN 12.2 g/dL (13.0-17.5); LYMPH # 0.2 x10^3/uL (1.0-4.8); LYMPH % 2 % (24-48); MEAN CORPUSCULAR HEMOGLOBIN 29 pg (25-35); MEAN CORPUSCULAR HGB CONC 33 g/dL (31-37); MEAN CORPUSCULAR VOLUME 88 fL (79-100); MONO % 2 % (0-9); NEUT % 95 % (31-73); PLATELET COUNT 214 x10^3/uL (140-400); RED BLOOD COUNT 4.19 x10^6/uL (4.30-5.70); RED CELL DISTRIBUTION WIDTH 14.2 % (11.5-14.5); WHITE BLOOD COUNT 11.9 x10^3/uL (4.0-11.0)
[2016-09-25 11:24] LABS: CALCIUM 8.3 mg/dL (8.5-10.1); CREATININE 2.2 mg/dL (0.7-1.3); GFR 28.7; POTASSIUM 4.1 mmol/L (3.5-5.1)
[2016-09-25 11:31] LABS: DIRECT BILIRUBIN 0.1 mg/dL (0.0-0.2); TOTAL BILIRUBIN 0.6 mg/dL (0.2-1.0); TOTAL PROTEIN 8.1 g/dL (6.4-8.2)
[2016-09-25 11:46] LABS: CKMB MASS < 0.5 ng/mL (0.0-3.6); CREATINE KINASE 30 U/L (39-308)
[2016-09-25 12:30] VITALS: BP 117/57
[2016-09-25 12:34] LABS: PLT ESTIMATE ADEQUATE (ADEQUATE)
[2016-09-25] MEDS ORDERED: CIPR500T94 PO (13:01)
--- NOTE | 2016-09-25 14:18 | EKG ---
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
== END 2016-09-25 13:30 | disposition home or self-care (01) ==
LOC: ER 10:08
DX: N30.00 Acute cystitis without hematuria (principal); R79.89 Other specified abnormal findings of blood chemistry; M19.90 Unspecified osteoarthritis, unspecified site
CPT/HCPCS: 36415; 51702; 80048; 80076; 81001; 82553; 83690; 85007; 85027; 87086; 93005; 96361; 96365; 96375; 99285; J0690; J2270; J7030; 87186

== ENCOUNTER → 2016-12-19 | Outpatient (CLI) | payer BC ==
[~2016-12-19] MED LIST changes: +CIPR500T94 PO
== END | disposition home or self-care (01) ==
LOC: PMGWOUND 08:05
PROVIDERS: ATTEND Emergency Medicine Undersea and Hyperbaric Medicine
DX: L89.614 Pressure ulcer of right heel, stage 4 (principal); L89.313 Pressure ulcer of right buttock, stage 3; M19.90 Unspecified osteoarthritis, unspecified site; I10 Essential (primary) hypertension; Z87.891 Personal history of nicotine dependence
CPT/HCPCS: 11042

== ENCOUNTER → 2017-01-10 | Outpatient (CLI) | payer BC | END | disposition home or self-care (01) | LOC: PMGWOUND 08:02 | PROVIDERS: ATTEND Preventive Medicine Undersea and Hyperbaric Medicine | DX: L89.313 Pressure ulcer of right buttock, stage 3 (principal); I10 Essential (primary) hypertension; M19.90 Unspecified osteoarthritis, unspecified site; Z87.891 Personal history of nicotine dependence | CPT/HCPCS: 97597 ==

== ENCOUNTER → 2017-01-24 | Outpatient (CLI) | payer BC | END | disposition home or self-care (01) | LOC: PMGWOUND 08:06 | PROVIDERS: ATTEND Preventive Medicine Undersea and Hyperbaric Medicine | DX: L89.313 Pressure ulcer of right buttock, stage 3 (principal); I10 Essential (primary) hypertension; M19.90 Unspecified osteoarthritis, unspecified site; Z87.891 Personal history of nicotine dependence | CPT/HCPCS: 97605 ==

== ENCOUNTER → 2017-02-07 | Outpatient (CLI) | payer BC | END | disposition home or self-care (01) | LOC: PMGWOUND 09:01 | PROVIDERS: ATTEND Preventive Medicine Undersea and Hyperbaric Medicine | DX: L89.313 Pressure ulcer of right buttock, stage 3 (principal); L89.614 Pressure ulcer of right heel, stage 4; I10 Essential (primary) hypertension; M19.90 Unspecified osteoarthritis, unspecified site; Z96.653 Presence of artificial knee joint, bilateral; Z87.891 Personal history of nicotine dependence | CPT/HCPCS: 99214 ==

== ENCOUNTER 2017-06-05 11:48 | Emergency (ER) | payer BC ==
[2017-06-05 12:58] LABS: BILIRUBIN,URINE NEGATIVE (NEG); CLARITY,URINE TURBID; COLOR,URINE YELLOW; GLUCOSE,URINE NEGATIVE (NEG); NITRITE,URINE POSITIVE (NEG); PROTEIN,URINE 100 mg/dL (NEG-TRACE); UROBILINOGEN,URINE 0.2 mg/dL (0.2 mg/dL)
[2017-06-05 13:05] LABS: ADD MAN DIFF? NO
[2017-06-05 13:07] LABS: BASO # 0.1 x10^3/uL (0.0-0.2); BASO % 1 % (0-3); EOS # 0.2 x10^3/uL (0.0-0.7); EOS % 2 % (0-3); HEMATOCRIT 40.8 % (39.0-53.0); HEMOGLOBIN 13.7 g/dL (13.0-17.5); LYMPH # 0.9 x10^3/uL (1.0-4.8); LYMPH % 9 % (24-48); MEAN CORPUSCULAR HEMOGLOBIN 30 pg (25-35); MEAN CORPUSCULAR HGB CONC 34 g/dL (31-37); MEAN CORPUSCULAR VOLUME 90 fL (79-100); MONO # 0.6 x10^3/uL (0.0-1.1); MONO % 6 % (0-9); NEUT # 7.8 x10^3uL (1.8-7.7); NEUT % 82 % (31-73); PLATELET COUNT 252 x10^3/uL (140-400); RED BLOOD COUNT 4.52 x10^6/uL (4.30-5.70); RED CELL DISTRIBUTION WIDTH 13.9 % (11.5-14.5); WHITE BLOOD COUNT 9.4 x10^3/uL (4.0-11.0)
[2017-06-05] MEDS: ACETAMINOPHEN 325 MG TABLET. PO (13:09)
[2017-06-05 13:10] LABS: RBC,URINE FOBS /HPF (0-2)
[2017-06-05 13:11] LABS: BACTERIA,URINE MODERATE /HPF (0-FEW); SQUAMOUS EPITHELIAL CELL,UR MOD /LPF; WBC,URINE TNTC /HPF (0-4)
[2017-06-05 13:29] LABS: ANION GAP 11 (6-14); BLOOD UREA NITROGEN 31 mg/dL (8-26); BUN/CREATININE RATIO 19 (6-20); CALCIUM 8.7 mg/dL (8.5-10.1); CARBON DIOXIDE 26 mmol/L (21-32); CHLORIDE 103 mmol/L (98-107); CREATININE 1.6 mg/dL (0.7-1.3); GFR 41.4; GLUCOSE 110 mg/dL (70-99); POTASSIUM 3.8 mmol/L (3.5-5.1); SODIUM 140 mmol/L (136-145)
[2017-06-05 13:33] LABS: ALBUMIN 2.9 g/dL (3.4-5.0); ALBUMIN/GLOBULIN RATIO 0.5 (1.0-1.7); ALK PHOS 122 U/L (46-116); ALT (SGPT) 19 U/L (16-63); AST (SGOT) 16 U/L (15-37); TOTAL BILIRUBIN 0.4 mg/dL (0.2-1.0); TOTAL PROTEIN 8.3 g/dL (6.4-8.2)
== END 2017-06-05 14:30 | disposition home or self-care (01) ==
LOC: ER 11:48
DX: N39.0 Urinary tract infection, site not specified (principal)
CPT/HCPCS: 36415; 80053; 81001; 85025; 87086; 87186; 96365; 99284-25; J0690

== ENCOUNTER 2019-02-04 00:02 | Emergency (ER) | payer BC ==
[~2019-02-04] VITALS: Ht 188 cm; Wt 108.9 kg
[~2019-02-04 00:02] MED LIST changes: +HYDR-3164 PO; -HYDR-971 PO; -PANT40TA5 PO; +PANT40TA77 PO
--- NOTE | 2019-02-04 00:46 | PHYS DOC ---
Past Medical History Past Medical History: Arthritis Additional Past Medical Histor: ENLARGED PROSTATE,PRESURES ULCERS ON FEET Past Surgical History: Other Additional Past Surgical Histo: prostate, bilat knee, lower back Alcohol Use: Rarely Drug Use: None Adult General Chief Complaint Chief Complaint: URINE CATHETER PROBLEM HPI HPI 88-year-old male presents to the emergency department with complaints of catheter problem. Patient has chronic indwelling catheter daughter states he had worsening hematuria tonight subsequently has improved however has had decreased output. Patient describes suprapubic pain. He did have some nausea and vomiting prior to his arrival. Patient denies any fever. He does have home health has been following the catheter. The catheter itself has been recently replaced per home health. He is on no blood thinning medications. Review of Systems Review of Systems Constitutional: Denies fever or chills [] Eyes: Denies change in visual acuity, redness, or eye pain [] HENT: Denies nasal congestion or sore throat [] Respiratory: Denies cough or shortness of breath [] Cardiovascular: No additional information not addressed in HPI [] GI: suprapubic pain, nausea, vomiting, no bloody stools or diarrhea [] : Denies dysuria or hematuria [] Musculoskeletal: Denies back pain or joint pain [] Neurologic: Denies headache, focal weakness or sensory changes [] All other systems were reviewed and found to be within normal limits, except as documented in this note. Allergies Allergies Allergies Coded Allergies Type Severity Reaction Last Updated Verified No Known Drug Allergies 06/29/16 No Physical Exam Physical Exam Constitutional: Well developed, well nourished, no acute distress, non-toxic appearance. [] HENT: Normocephalic, atraumatic, bilateral external ears normal, oropharynx moist, no oral exudates, nose normal. [] Eyes: PERRLA, EOMI, conjunctiva normal, no discharge. [] Cardiovascular:Heart rate regular rhythm, no murmur [] Lungs & Thorax: Bilateral breath sounds clear to auscultation [] Abdomen: Bowel sounds normal, soft, no tenderness, no masses, no pulsatile masses. [] Skin: Warm, dry, no erythema, no rash. [] Back: No tenderness, no CVA tenderness. [] Extremities: No tenderness, no edema. [] Neurologic: Alert and oriented X 3, no focal deficits noted. [] Psychologic: Affect normal, judgement normal, mood normal. [] Current Patient Data Lab Values Laboratory Tests Test 02/04/19 01:06 Urine Collection Type U cath Urine Color Yellow Urine Clarity Turbid Urine pH 6.5 Urine Specific [place] <=1.005 Urine Protein 100 mg/dL (NEG-TRACE) Urine Glucose (UA) Negative mg/dL (NEG) Urine Ketones (Stick) Negative mg/dL (NEG) Urine Blood Large (NEG) Urine Nitrite Negative (NEG) Urine Bilirubin Negative (NEG) Urine Urobilinogen Dipstick 0.2 mg/dL (0.2 mg/dL) Urine Leukocyte Esterase Large (NEG) Urine RBC Tntc /HPF (0-2) Urine WBC Tntc /HPF (0-4) Urine Squamous Epithelial Cells Occ /LPF Urine Bacteria Many /HPF (0-FEW) EKG EKG [] Radiology/Procedures Radiology/Procedures [] Course & Med Decision Making Course & Med Decision Making Pertinent Labs and Imaging studies reviewed. (See chart for details) []88-year-old male presents to the emergency department with complaints of catheter problem. Patient has chronic indwelling catheter daughter states he had worsening hematuria tonight subsequently has improved however has had decreased output. Patient describes suprapubic pain. He did have some nausea and vomiting prior to his arrival. Patient denies any fever. He does have home health has been following the catheter. The catheter itself has been recently replaced per home health. He is on no blood thinning medications. UAD with evidence of UTI Catheter replaced with 3 way - bladder irrigation with 3 Liters of fluid until clear Keflex BID upon discharge for 5 days Discussed with patient/family regarding discharge plans Discussed with patient/family follow up and return precautions Dragon Disclaimer Dragon Disclaimer This electronic medical record was generated, in whole or in part, using a voice recognition dictation system. Departure Departure Impression: Primary Impression: Urinary tract infection Additional Impression: Tamez catheter problem Disposition: HOME, SELF-CARE Condition: IMPROVED Referrals: SCOTTY HAYWARD MD (PCP) Patient Instructions: Tamez Catheter Care, Adult, Urinary Tract Infection, Child Additional Instructions: Recommend follow up with PCP 3 - 5 days Return to the ER with worsening symptoms, intractable pain, fever, altered menta l status Tylenol/Motrin as needed for pain Take antibiotics as described Scripts Cephalexin (KEFLEX) 500 Mg Capsule 2 CAP PO Q12HR for 5 Days, #20 CAP Prov: JANNET PEDERSON MD 02/04/19 Problem Qualifiers Primary Impression: Urinary tract infection Urinary tract infection type: site unspecified Hematuria presence: with hematuria Qualified Codes: N39.0 - Urinary tract infection, site not specified; R31.9 - Hematuria, unspecified Additional Impression: Tamez catheter problem Encounter type: initial encounter Qualified Codes: T83.9XXA - Unspecified complication of genitourinary prosthetic device, implant and graft, initial encounter JANNET PEDERSON MD Feb 04, 2019 00:46
[2019-02-04 01:14] LABS: BILIRUBIN,URINE NEGATIVE (NEG); CLARITY,URINE TURBID; COLOR,URINE YELLOW; NITRITE,URINE NEGATIVE (NEG); PH,URINE 6.5; PROTEIN,URINE 100 mg/dL (NEG-TRACE); UROBILINOGEN,URINE 0.2 mg/dL (0.2 mg/dL)
[2019-02-04 01:23] LABS: BACTERIA,URINE MANY /HPF (0-FEW); RBC,URINE TNTC /HPF (0-2); SQUAMOUS EPITHELIAL CELL,UR OCC /LPF; WBC,URINE TNTC /HPF (0-4)
[2019-02-04] MEDS ORDERED: CEPH-264 PO (01:35)
[2019-02-04] MEDS ORDERED: CEPHALEXIN 250 MG CAPSULE. PO ONE (02:15)
[2019-02-04 02:21] VITALS: BP 123/80
== END 2019-02-04 02:59 | disposition home or self-care (01) ==
LOC: ER 00:02
DX: T83.9XXA Unspecified complication of genitourinary prosthetic device, implant and graft, initial encounter (principal); N39.0 Urinary tract infection, site not specified; R31.9 Hematuria, unspecified
CPT/HCPCS: 51702; 81001; 87086; 87186; 99284

== ENCOUNTER 2020-12-22 11:28 | Inpatient (IN) | payer BC ==
[~2020-12-22] VITALS: Ht 175.3 cm; Wt 104.0 kg
[2020-12-22 12:24] LABS: BASO % 0 % (0-3); EOS % 0 % (0-3); HEMATOCRIT 37.5 % (39.0-53.0); HEMOGLOBIN 12.8 g/dL (13.0-17.5); LYMPH # 0.8 x10^3/uL (1.0-4.8); LYMPH % 8 % (24-48); MEAN CORPUSCULAR HEMOGLOBIN 33 pg (25-35); MEAN CORPUSCULAR HGB CONC 34 g/dL (31-37); MEAN CORPUSCULAR VOLUME 98 fL (79-100); MONO # 0.5 x10^3/uL (0.0-1.1); MONO % 6 % (0-9); NEUT # 8.4 x10^3/uL (1.8-7.7); NEUT % 86 % (31-73); PLATELET COUNT 328 x10^3/uL (140-400); RED BLOOD COUNT 3.85 x10^6/uL (4.30-5.70); RED CELL DISTRIBUTION WIDTH 14.4 % (11.5-14.5); WHITE BLOOD COUNT 9.8 x10^3/uL (4.0-11.0)
[2020-12-22] MEDS ORDERED: IV NORMAL SALINE 1000ML BAG 1,000 ML IV ONE ×2 (12:30→13:15)
[2020-12-22 12:57] LABS: CALCIUM 7.9 mg/dL (8.5-10.1); CREATININE 1.8 mg/dL (0.7-1.3); GFR 35.8; POTASSIUM 4.4 mmol/L (3.5-5.1)
[2020-12-22] MEDS ORDERED: cefTRIAXone IV Push 1 GM VIAL. IVP ONE (13:00)
[2020-12-22 13:02] LABS: ALBUMIN 2.1 g/dL (3.4-5.0); ALBUMIN/GLOBULIN RATIO 0.5 (1.0-1.7); MAGNESIUM 2.5 mg/dL (1.8-2.4); TOTAL BILIRUBIN 0.5 mg/dL (0.2-1.0); TOTAL PROTEIN 6.3 g/dL (6.4-8.2)
[2020-12-22 13:45] LABS: BILIRUBIN,URINE MODERATE (NEG); CLARITY,URINE TURBID; COLOR,URINE RED; NITRITE,URINE POSITIVE (NEG); PH,URINE 6.5 (<5.0-8.0); PROTEIN,URINE >=300 mg/dL (NEG-TRACE)
[2020-12-22 13:57] LABS: HYALINE CASTS, URINE MODERATE /HPF
[2020-12-22 13:58] LABS: BACTERIA,URINE MANY /HPF (0-FEW); RBC,URINE TNTC /HPF (0-2); WBC,URINE >40 /HPF (0-4)
--- NOTE | 2020-12-22 14:20 | PHYS DOC ---
Past Medical History Past Medical History: Arthritis Additional Past Medical Histor: ENLARGED PROSTATE,PRESURES ULCERS ON FEET, sepsis Past Surgical History: Other Additional Past Surgical Histo: prostate, bilat knee, lower back Smoking Status: Never Smoker Alcohol Use: Occasionally Drug Use: None General Adult EDM: Chief Complaint: AMS HPI: HPI: Patient is a 89 year old male who was brought here by family for evaluation of altered mental status and confusion. Patient has history of indwelling Martinez catheter for the last 7 years. Patient's home health nurse came out and replaced the Martinez yesterday. Patient had an appointment to see his dentist today, while he was at the dentist office patient was acting confused, he vomited several times so his daughter brought him here for evaluation. The urine in the martinez catheter is very condensed with purulent content. Patient denies any cough or fever. Review of Systems: Review of Systems: Constitutional: Denies fever or chills. [] Eyes: Denies change in visual acuity. [] HENT: Denies nasal congestion or sore throat. [] Respiratory: Denies cough or shortness of breath. [] Cardiovascular: Denies chest pain or edema. [] GI: Denies abdominal pain, nausea, vomiting, bloody stools or diarrhea. [] : Denies dysuria. [] Musculoskeletal: Denies back pain or joint pain. [] Integument: Denies rash. [] Neurologic: Positive for confusion, general weakness, denies headache Endocrine: Denies polyuria or polydipsia. [] Lymphatic: Denies swollen glands. [] Psychiatric: Denies depression or anxiety. [] Heart Score: C/O Chest Pain: N/A Risk Factors: Risk Factors: DM, Current or recent (<one month) smoker, HTN, HLP, family history of CAD, obesity. Risk Scores: Score 0 - 3: 2.5% MACE over next 6 weeks - Discharge Home Score 4 - 6: 20.3% MACE over next 6 weeks - Admit for Clinical Observation Score 7 - 10: 72.7% MACE over next 6 weeks - Early Invasive Strategies Current Medications: Current Medications Medications (Trade) Dose Ordered Sig/Summer Start Time Stop Time Status Last Admin Dose Admin Ceftriaxone Sodium (Rocephin) 1 gm 1X ONCE 12/22/20 13:00 12/22/20 13:01 DC 12/22/20 13:17 1 GM Sodium Chloride 1,000 ml @ 1,000 mls/hr 1X ONCE 12/22/20 13:15 12/22/20 14:14 DC 12/22/20 13:14 1,000 MLS/HR Allergies: Allergies: Allergies Coded Allergies Type Severity Reaction Last Updated Verified No Known Drug Allergies 06/29/16 No Physical Exam: PE: Constitutional: Well developed, well nourished, mild acute distress, non-toxic appearance. [] HENT: Normocephalic, atraumatic, bilateral external ears normal, oropharynx is dried, no oral exudates, nose normal. [] Eyes: PERRLA, EOMI, conjunctiva normal, no discharge. [] Neck: Normal range of motion, no tenderness, supple, no stridor. [] Cardiovascular:Heart rate regular rhythm, no murmur [] Lungs & Thorax: Bilateral breath sounds clear to auscultation [] Abdomen: Bowel sounds normal, soft, no tenderness, no masses, no pulsatile masses. [] Skin: Warm, dry, no erythema, no rash. [] Back: No tenderness, no CVA tenderness. [] Extremities: No tenderness, no cyanosis, no clubbing, ROM intact, no edema. [] Neurologic: patient is awake and alert, only oriented to person. Psychologic: Affect normal, judgement normal, mood normal. [] Current Patient Data: Labs: Laboratory Tests Test 12/22/20 12:12 12/22/20 13:20 White Blood Count 9.8 x10^3/uL Red Blood Count 3.85 x10^6/uL Hemoglobin 12.8 g/dL Hematocrit 37.5 % Mean Corpuscular Volume 98 fL Mean Corpuscular Hemoglobin 33 pg Mean Corpuscular Hemoglobin Concent 34 g/dL Red Cell Distribution Width 14.4 % Platelet Count 328 x10^3/uL Neutrophils (%) (Auto) 86 % Lymphocytes (%) (Auto) 8 % Monocytes (%) (Auto) 6 % Eosinophils (%) (Auto) 0 % Basophils (%) (Auto) 0 % Neutrophils # (Auto) 8.4 x10^3/uL Lymphocytes # (Auto) 0.8 x10^3/uL Monocytes # (Auto) 0.5 x10^3/uL Eosinophils # (Auto) 0.0 x10^3/uL Basophils # (Auto) 0.0 x10^3/uL Sodium Level 121 mmol/L Potassium Level 4.4 mmol/L Chloride Level 88 mmol/L Carbon Dioxide Level 22 mmol/L Anion Gap 11 Blood Urea Nitrogen 34 mg/dL Creatinine 1.8 mg/dL Estimated GFR (Cockcroft-Gault) 35.8 BUN/Creatinine Ratio 19 Glucose Level 164 mg/dL Lactic Acid Level 3.5 mmol/L Calcium Level 7.9 mg/dL Magnesium Level 2.5 mg/dL Total Bilirubin 0.5 mg/dL Aspartate Amino Transf (AST/SGOT) 31 U/L Alanine Aminotransferase (ALT/SGPT) 44 U/L Alkaline Phosphatase 95 U/L Troponin I Quantitative < 0.017 ng/mL [id number]-Emc-[id number]-Type Natriuretic Peptide 1880 pg/mL Total Protein 6.3 g/dL Albumin 2.1 g/dL Albumin/Globulin Ratio 0.5 Urine Collection Type U cath Urine Color Red Urine Clarity Turbid Urine pH 6.5 Urine Specific [place] 1.015 Urine Protein >=300 mg/dL Urine Glucose (UA) Negative mg/dL Urine Ketones (Stick) 15 mg/dL Urine Blood Large Urine Nitrite Positive Urine Bilirubin Moderate Urine Urobilinogen Dipstick 1.0 mg/dL Urine Leukocyte Esterase Large Urine RBC Tntc /HPF Urine WBC >40 /HPF Urine Squamous Epithelial Cells Few /LPF Urine Bacteria Many /HPF Urine Hyaline Casts Moderate /HPF Urine Mucus Mod /LPF Current Medications Medications (Trade) Dose Ordered Sig/Summer Route PRN Reason Start Time Stop Time Status Last Admin Dose Admin Sodium Chloride 1,000 ml @ 1,000 mls/hr 1X ONCE IV 12/22/20 12:30 12/22/20 13:29 DC 12/22/20 12:15 Ceftriaxone Sodium (Rocephin) 1 gm 1X ONCE IVP 12/22/20 13:00 12/22/20 13:01 DC 12/22/20 13:17 Sodium Chloride 1,000 ml @ 1,000 mls/hr 1X ONCE IV 12/22/20 13:15 12/22/20 14:14 DC 12/22/20 13:14 Ceftriaxone Sodium (Rocephin) 1 gm DAILY IVP 12/23/20 09:00 Laboratory Tests Test 12/22/20 12:12 12/22/20 13:20 White Blood Count 9.8 x10^3/uL (4.0-11.0) Red Blood Count 3.85 x10^6/uL (4.30-5.70) L Hemoglobin 12.8 g/dL (13.0-17.5) L Hematocrit 37.5 % (39.0-53.0) L Mean Corpuscular Volume 98 fL (79-100) Mean Corpuscular Hemoglobin 33 pg (25-35) Mean Corpuscular Hemoglobin Concent 34 g/dL (31-37) Red Cell Distribution Width 14.4 % (11.5-14.5) Platelet Count 328 x10^3/uL (140-400) Neutrophils (%) (Auto) 86 % (31-73) H Lymphocytes (%) (Auto) 8 % (24-48) L Monocytes (%) (Auto) 6 % (0-9) Eosinophils (%) (Auto) 0 % (0-3) Basophils (%) (Auto) 0 % (0-3) Neutrophils # (Auto) 8.4 x10^3/uL (1.8-7.7) H Lymphocytes # (Auto) 0.8 x10^3/uL (1.0-4.8) L Monocytes # (Auto) 0.5 x10^3/uL (0.0-1.1) Eosinophils # (Auto) 0.0 x10^3/uL (0.0-0.7) Basophils # (Auto) 0.0 x10^3/uL (0.0-0.2) Sodium Level 121 mmol/L (136-145) L Potassium Level 4.4 mmol/L (3.5-5.1) Chloride Level 88 mmol/L (98-107) L Carbon Dioxide Level 22 mmol/L (21-32) Anion Gap 11 (6-14) Blood Urea Nitrogen 34 mg/dL (8-26) H Creatinine 1.8 mg/dL (0.7-1.3) H Estimated GFR (Cockcroft-Gault) 35.8 BUN/Creatinine Ratio 19 (6-20) Glucose Level 164 mg/dL (70-99) H Lactic Acid Level 3.5 mmol/L (0.4-2.0) H Calcium Level 7.9 mg/dL (8.5-10.1) L Magnesium Level 2.5 mg/dL (1.8-2.4) H Total Bilirubin 0.5 mg/dL (0.2-1.0) Aspartate Amino Transferase (AST) 31 U/L (15-37) Alanine Aminotransferase (ALT) 44 U/L (16-63) Alkaline Phosphatase 95 U/L (46-116) Troponin I Quantitative < 0.017 ng/mL (0.000-0.055) RX-Pvm-F-Type Natriuretic Peptide 1880 pg/mL (0-449) H Total Protein 6.3 g/dL (6.4-8.2) L Albumin 2.1 g/dL (3.4-5.0) L Albumin/Globulin Ratio 0.5 (1.0-1.7) L Urine Collection Type U cath Urine Color Red Urine Clarity Turbid Urine pH 6.5 (<5.0-8.0) Urine Specific [place] 1.015 (1.000-1.030) Urine Protein >=300 mg/dL (NEG-TRACE) Urine Glucose (UA) Negative mg/dL (NEG) Urine Ketones (Stick) 15 mg/dL (NEG) Urine Blood Large (NEG) Urine Nitrite Positive (NEG) Urine Bilirubin Moderate (NEG) Urine Urobilinogen Dipstick 1.0 mg/dL (0.2 mg/dL) Urine Leukocyte Esterase Large (NEG) Urine RBC Tntc /HPF (0-2) Urine WBC >40 /HPF (0-4) Urine Squamous Epithelial Cells Few /LPF Urine Bacteria Many /HPF (0-FEW) Urine Hyaline Casts Moderate /HPF Urine Mucus Mod /LPF Laboratory Tests 12/22/20 12:12 Laboratory Tests 12/22/20 12:12 Vital Signs: Vital Signs Date Time Temp Pulse Resp B/P (MAP) Pulse Ox O2 Delivery O2 Flow Rate FiO2 12/22/20 11:57 97.7 114 20 80/48 (59) 93 Room Air 97.7 EKG: EKG: [] Radiology/Procedures: Radiology/Procedures: [] Course & Med Decision Making: Course & Med Decision Making Pertinent Labs and Imaging studies reviewed. (See chart for details) Patient is an 89-year-old male who present to ER due to altered mental status, an indwelling Martinez catheter for pus, it was replaced, a new Martinez catheter was placed. Patient was given IV fluid, urine was collected and a new Martinez bag, it was checked and showed he had urosepsis. Patient also had low sodium level. Patient will be admitted to hospital for IV antibiotic and IV fluid. Discussed with Dr. Jimi Botello who agreed to admit the patient Dragon Disclaimer: Dragon Disclaimer: This electronic medical record was generated, in whole or in part, using a voice recognition dictation system. Departure Departure Impression: Primary Impression: Severe sepsis Additional Impressions: Urinary tract infection Hyponatremia Disposition: ADMITTED INPATIENT Admitting Physician: VLADIMIRS (Dr. Jimi Botello) Condition: IMPROVED Referrals: SCOTTY HAYWARD MD (PCP) DEVON VALENCIA DO Dec 22, 2020 14:20
--- NOTE | 2020-12-22 14:30 | PDOC1 ---
History and Physical Date of Admission Date of Admission DATE: 12/22/20 TIME: 14:29 Identification/Chief Complaint Chief Complaint AMS Source Source: Caregiver, Chart review History of Present Illness History of Present Illness Patient is a 89-year-old male with past medical history BPH, frequent UTIs, presents to the ED for evaluation of altered mental status. He has history of chronic indwelling Tamez for the past 7 years. His home health nurse came to replace his Tamez yesterday and noted cloudy urine. Today he was seen at the dentist to address an infected tooth, but no procedure was undertaken because of his altered mental status, so he was sent to the ED for further evaluation.. Upon arrival in the ED his heart rate was 114, with blood pressure 80/48 mmHg. labs on admission showed sodium 121, BUN 34, creatinine 1.8, CBG 164, BNP 1880, troponin <0.017, albumin 2.1, lactic acid 3.5. He received IV Rocephin and IV fluids. Reportedly has been vaccinated against COVID-19. Will be patient for further medical management. Past Medical History Past Medical History BPH, nephrolithiasis, recurrent UTIs Past Surgical History Past Surgical History Prostate surgery, bilateral knee surgery Family History Family History Reviewed with patient but denies significant family history Social History Smoke: No ALCOHOL: occassional Drugs: None Current Problem List Problem List Problems Medical Problems: (1) Severe sepsis Status: Acute (2) Urinary tract infection Status: Acute Current Medications Current Medications Current Medications Sodium Chloride 1,000 ml @ 1,000 mls/hr 1X ONCE IV Last administered on 12/22/20at 12:15; Start 12/22/20 at 12:30; Stop 12/22/20 at 13:29; Status DC Ceftriaxone Sodium (Rocephin) 1 gm 1X ONCE IVP Last administered on 12/22/20at 13:17; Start 12/22/20 at 13:00; Stop 12/22/20 at 13:01; Status DC Sodium Chloride 1,000 ml @ 1,000 mls/hr 1X ONCE IV Last administered on 12/22/20at 13:14; Start 12/22/20 at 13:15; Stop 12/22/20 at 14:14; Status DC Active Scripts Active Keflex (Cephalexin) 500 Mg Capsule 2 Cap PO Q12HR 5 Days Keflex (Cephalexin) 500 Mg Capsule 500 Mg PO QID 10 Days Cipro (Ciprofloxacin Hcl) 500 Mg Tablet 1 Tab PO BID Reported [place] 5-325 Tablet (Acetaminophen/Hydrocodone Bitart) 1 Each Tablet 1 Tab PO Q4HRS PRN Allergies Allergies: Coded Allergies: No Known Drug Allergies (Unverified , 06/29/16) ROS Review of System Unable to obtain at this time due to clinical condition Physical Exam Physical Exam General: Alert, Oriented X3, Cooperative, No acute distress HEENT: PERRLA, EOMI. Front right molar necrotic appearing. Lungs: Clear to auscultation, Normal air movement Heart: RRR, no murmurs Cardiovascular: S1, S2 Abdomen: Normal bowel sounds, Soft, No tenderness Extremities: No clubbing, No cyanosis Skin: No rashes, No significant lesion Neuro: Normal speech, Normal tone, Sensation intact Psych/Mental Status: Mental status NL, Mood NL Vitals Vitals Vital Signs Date Time Temp Pulse Resp B/P (MAP) Pulse Ox O2 Delivery O2 Flow Rate FiO2 12/22/20 11:57 97.7 114 20 80/48 (59) 93 Room Air 97.7 Labs Labs Laboratory Tests Test 12/22/20 12:12 12/22/20 13:20 White Blood Count 9.8 x10^3/uL (4.0-11.0) Red Blood Count 3.85 x10^6/uL (4.30-5.70) Hemoglobin 12.8 g/dL (13.0-17.5) Hematocrit 37.5 % (39.0-53.0) Mean Corpuscular Volume 98 fL (79-100) Mean Corpuscular Hemoglobin 33 pg (25-35) Mean Corpuscular Hemoglobin Concent 34 g/dL (31-37) Red Cell Distribution Width 14.4 % (11.5-14.5) Platelet Count 328 x10^3/uL (140-400) Neutrophils (%) (Auto) 86 % (31-73) Lymphocytes (%) (Auto) 8 % (24-48) Monocytes (%) (Auto) 6 % (0-9) Eosinophils (%) (Auto) 0 % (0-3) Basophils (%) (Auto) 0 % (0-3) Neutrophils # (Auto) 8.4 x10^3/uL (1.8-7.7) Lymphocytes # (Auto) 0.8 x10^3/uL (1.0-4.8) Monocytes # (Auto) 0.5 x10^3/uL (0.0-1.1) Eosinophils # (Auto) 0.0 x10^3/uL (0.0-0.7) Basophils # (Auto) 0.0 x10^3/uL (0.0-0.2) Sodium Level 121 mmol/L (136-145) Potassium Level 4.4 mmol/L (3.5-5.1) Chloride Level 88 mmol/L (98-107) Carbon Dioxide Level 22 mmol/L (21-32) Anion Gap 11 (6-14) Blood Urea Nitrogen 34 mg/dL (8-26) Creatinine 1.8 mg/dL (0.7-1.3) Estimated GFR (Cockcroft-Gault) 35.8 BUN/Creatinine Ratio 19 (6-20) Glucose Level 164 mg/dL (70-99) Lactic Acid Level 3.5 mmol/L (0.4-2.0) Calcium Level 7.9 mg/dL (8.5-10.1) Magnesium Level 2.5 mg/dL (1.8-2.4) Total Bilirubin 0.5 mg/dL (0.2-1.0) Aspartate Amino Transf (AST/SGOT) 31 U/L (15-37) Alanine Aminotransferase (ALT/SGPT) 44 U/L (16-63) Alkaline Phosphatase 95 U/L (46-116) Troponin I Quantitative < 0.017 ng/mL (0.000-0.055) YS-Ovt-Y-Type Natriuretic Peptide 1880 pg/mL (0-449) Total Protein 6.3 g/dL (6.4-8.2) Albumin 2.1 g/dL (3.4-5.0) Albumin/Globulin Ratio 0.5 (1.0-1.7) Urine Collection Type U cath Urine Color Red Urine Clarity Turbid Urine pH 6.5 (<5.0-8.0) Urine Specific [place] 1.015 (1.000-1.030) Urine Protein >=300 mg/dL (NEG-TRACE) Urine Glucose (UA) Negative mg/dL (NEG) Urine Ketones (Stick) 15 mg/dL (NEG) Urine Blood Large (NEG) Urine Nitrite Positive (NEG) Urine Bilirubin Moderate (NEG) Urine Urobilinogen Dipstick 1.0 mg/dL (0.2 mg/dL) Urine Leukocyte Esterase Large (NEG) Urine RBC Tntc /HPF (0-2) Urine WBC >40 /HPF (0-4) Urine Squamous Epithelial Cells Few /LPF Urine Bacteria Many /HPF (0-FEW) Urine Hyaline Casts Moderate /HPF Urine Mucus Mod /LPF Laboratory Tests Test 12/22/20 12:12 12/22/20 13:20 White Blood Count 9.8 x10^3/uL (4.0-11.0) Red Blood Count 3.85 x10^6/uL (4.30-5.70) Hemoglobin 12.8 g/dL (13.0-17.5) Hematocrit 37.5 % (39.0-53.0) Mean Corpuscular Volume 98 fL (79-100) Mean Corpuscular Hemoglobin 33 pg (25-35) Mean Corpuscular Hemoglobin Concent 34 g/dL (31-37) Red Cell Distribution Width 14.4 % (11.5-14.5) Platelet Count 328 x10^3/uL (140-400) Neutrophils (%) (Auto) 86 % (31-73) Lymphocytes (%) (Auto) 8 % (24-48) Monocytes (%) (Auto) 6 % (0-9) Eosinophils (%) (Auto) 0 % (0-3) Basophils (%) (Auto) 0 % (0-3) Neutrophils # (Auto) 8.4 x10^3/uL (1.8-7.7) Lymphocytes # (Auto) 0.8 x10^3/uL (1.0-4.8) Monocytes # (Auto) 0.5 x10^3/uL (0.0-1.1) Eosinophils # (Auto) 0.0 x10^3/uL (0.0-0.7) Basophils # (Auto) 0.0 x10^3/uL (0.0-0.2) Sodium Level 121 mmol/L (136-145) Potassium Level 4.4 mmol/L (3.5-5.1) Chloride Level 88 mmol/L (98-107) Carbon Dioxide Level 22 mmol/L (21-32) Anion Gap 11 (6-14) Blood Urea Nitrogen 34 mg/dL (8-26) Creatinine 1.8 mg/dL (0.7-1.3) Estimated GFR (Cockcroft-Gault) 35.8 BUN/Creatinine Ratio 19 (6-20) Glucose Level 164 mg/dL (70-99) Lactic Acid Level 3.5 mmol/L (0.4-2.0) Calcium Level 7.9 mg/dL (8.5-10.1) Magnesium Level 2.5 mg/dL (1.8-2.4) Total Bilirubin 0.5 mg/dL (0.2-1.0) Aspartate Amino Transf (AST/SGOT) 31 U/L (15-37) Alanine Aminotransferase (ALT/SGPT) 44 U/L (16-63) Alkaline Phosphatase 95 U/L (46-116) Troponin I Quantitative < 0.017 ng/mL (0.000-0.055) VV-Zdg-F-Type Natriuretic Peptide 1880 pg/mL (0-449) Total Protein 6.3 g/dL (6.4-8.2) Albumin 2.1 g/dL (3.4-5.0) Albumin/Globulin Ratio 0.5 (1.0-1.7) Urine Collection Type U cath Urine Color Red Urine Clarity Turbid Urine pH 6.5 (<5.0-8.0) Urine Specific [place] 1.015 (1.000-1.030) Urine Protein >=300 mg/dL (NEG-TRACE) Urine Glucose (UA) Negative mg/dL (NEG) Urine Ketones (Stick) 15 mg/dL (NEG) Urine Blood Large (NEG) Urine Nitrite Positive (NEG) Urine Bilirubin Moderate (NEG) Urine Urobilinogen Dipstick 1.0 mg/dL (0.2 mg/dL) Urine Leukocyte Esterase Large (NEG) Urine RBC Tntc /HPF (0-2) Urine WBC >40 /HPF (0-4) Urine Squamous Epithelial Cells Few /LPF Urine Bacteria Many /HPF (0-FEW) Urine Hyaline Casts Moderate /HPF Urine Mucus Mod /LPF VTE Prophylaxis Ordered VTE Prophylaxis Devices: No VTE Pharmacological Prophylaxi: Yes Assessment/Plan Assessment/Plan Urosepsis SHEREE Hyponatremia History BPH Severe malnutrition Plan: Urine culture from 02/04/2019 grew Klebsiella, sensitive to Rocephin. We will continue treatment with Rocephin 1 g daily. Will follow urine cultures and blood cultures. Creatinine 1.6, EGFR 41.5, on 04/12/2016. Received fluid bolus in the ED. We will continue to monitor kidney function for improvement back to baseline. Will fluid restrict <1 L daily, every 12 hours sodium checks. Resume home medications FEN - Cardiac diet PPX - Heparin DNR Dispo - inpatient for above Patient's surrogate decision-maker is his daughter (Rose Schmidt). Justifications for Admission Other Justification GILMA THOMPSON MD Dec 22, 2020 14:30
[2020-12-22] MEDS ORDERED: MAG HYDROX/ALUMINUM HYD/SIMETH 30 ML ORAL.SUSP PO PRN (15:30)
[2020-12-22] MEDS ORDERED: BENZOCAINE 10% ORAL GEL 7GM TUBE. TP PRN (15:30)
[2020-12-22] MEDS ORDERED: ONDANSETRON PF 4 MG/2 ML VIAL. IVP PRN (15:30)
[2020-12-22] MEDS ORDERED: ACETAMINOPHEN 325 MG TABLET. PO PRN (15:30)
[2020-12-22] MEDS ORDERED: ZOLPIDEM 5 MG TABLET. PO PRN (15:30)
[2020-12-22] MEDS ORDERED: HYDROcodone/APAP 5/325MG 1 TAB TABLET PO PRN (15:30)
[2020-12-22] MEDS ORDERED: MAGNESIUM HYDROXIDE 2,400 MG/30 ML ORAL.SUSP. PO PRN (15:30)
[2020-12-22] MEDS ORDERED: LIDOCAINE 2% VISCOUS 15 ML SOLUTION. SWSW PRN (15:30)
[2020-12-22] MEDS ORDERED: CALCIUM CARBONATE 500 MG TAB.CHEW PO PRN (15:30)
[2020-12-22] MEDS ORDERED: MORPHINE SULFATE 2 MG/ML INJ. IV PRN (15:30)
--- NOTE | 2020-12-22 16:19 | NUR ---
Admission Note: The patient, Mr. Randy Schmidt, 89/M admitted due to complicated UTI, Sepsis arrived on the unit at 1600 via stretcher on room air. He is awake, alert, oriented x 3, and denies pain. The patient is oriented to the unit, belongings checked, and call light placed within reach. Fall precautions in place. Per ER report, the patient is assist x2, max assist.
--- NOTE | 2020-12-22 17:26 | EKG ---
[facility] [address] [place] [id number] Test Date: 2020-12-22 Test Time: 12:00:47 Pat Name: DOUG RENAE Department: Room: 4 1 Gender: M [employer] Metal: : [id number] Requested By: DEVON VALENCIA Order Number: [id number] Reading MD: Sudheer rOtiz Measurements Intervals Sebastian Rate: 117 P: NE: QRS: 31 QRSD: 86 T: 34 QT: 310 QTc: 437 Interpretive Statements SINUS TACHYCARDIA LOW LIMB LEAD VOLTAGE Electronically Signed On 12-24-2020 13:35:45 CDT by Sudheer Ortiz
[2020-12-22 19:00] VITALS: BP 140/53
[2020-12-22] MEDS: LACTOBACILLUS RHAMNOSUS GG 1 CAPSULE. PO SCH (21:14)
[2020-12-22 23:05] VITALS: BP 112/56
[2020-12-23 03:07] VITALS: BP 114/51
[2020-12-23 07:00] VITALS: BP 106/60
[2020-12-23 07:35] LABS: BASO % 0 % (0-3); EOS % 1 % (0-3); HEMATOCRIT 33.2 % (39.0-53.0); HEMOGLOBIN 11.3 g/dL (13.0-17.5); LYMPH # 0.8 x10^3/uL (1.0-4.8); LYMPH % 13 % (24-48); MEAN CORPUSCULAR HEMOGLOBIN 33 pg (25-35); MEAN CORPUSCULAR HGB CONC 34 g/dL (31-37); MEAN CORPUSCULAR VOLUME 98 fL (79-100); MONO # 0.5 x10^3/uL (0.0-1.1); MONO % 9 % (0-9); NEUT # 4.5 x10^3/uL (1.8-7.7); NEUT % 77 % (31-73); PLATELET COUNT 290 x10^3/uL (140-400); RED CELL DISTRIBUTION WIDTH 14.2 % (11.5-14.5); WHITE BLOOD COUNT 5.9 x10^3/uL (4.0-11.0)
[2020-12-23 08:05] LABS: CALCIUM 7.6 mg/dL (8.5-10.1); CREATININE 1.6 mg/dL (0.7-1.3)
--- NOTE | 2020-12-23 09:05 | PDOC ---
[facility] PROGRESS NOTE Date of Service DOS: DATE: 12/23/20 TIME: 09:04 Chief Complaint Chief Complaint Urosepsis SHEREE Hyponatremia History BPH Severe malnutrition Plan: Urine culture from 02/04/2019 grew Klebsiella, sensitive to Rocephin. We will continue treatment with Rocephin 1 g daily. Will follow urine cultures and blood cultures. Creatinine 1.6, EGFR 41.5, on 04/12/2016. Received fluid bolus in the ED. We will continue to monitor kidney function for improvement back to baseline. Will fluid restrict <1 L daily, every 12 hours sodium checks. Resume home medications FEN - Cardiac diet PPX - Heparin DNR Dispo - inpatient for above Patient's surrogate decision-maker is his daughter (Rose Schmidt). History of Present Illness History of Present Illness Patient is a 89-year-old male with past medical history BPH, frequent UTIs, presents to the ED for evaluation of altered mental status. He has history of chronic indwelling Tamez for the past 7 years. His home health nurse came to replace his Tamez yesterday and noted cloudy urine. Today he was seen at the dentist to address an infected tooth, but no procedure was undertaken because of his altered mental status, so he was sent to the ED for further evaluation.. Upon arrival in the ED his heart rate was 114, with blood pressure 80/48 mmHg. labs on admission showed sodium 121, BUN 34, creatinine 1.8, CBG 164, BNP 1880, troponin <0.017, albumin 2.1, lactic acid 3.5. He received IV Rocephin and IV fluids. Reportedly has been vaccinated against COVID-19. Will be patient for further medical management. Sodium improved to 128. Cr 1.6. Feeling improved today. Shortness of breath and chest pain improved. Some headache improved with tylenol Vitals/I&O Vitals/I&O: Vital Signs Date Time Temp Pulse Resp B/P (MAP) Pulse Ox O2 Delivery O2 Flow Rate FiO2 12/23/20 07:00 98.7 82 20 106/60 (75) 96 Room Air 98.7 I & O 12/22/20 12/22/20 12/23/20 15:00 23:00 07:00 Intake Total 2000 ml 240 ml Output Total 950 ml Balance 2000 ml 240 ml -950 ml Physical Exam General: Alert, Oriented X3, Cooperative Heart: Regular rate Lungs: Wheezing Abdomen: Normal bowel sounds Extremities: No clubbing Labs Labs: Laboratory Tests Test 12/22/20 12:12 12/22/20 13:20 12/22/20 15:38 12/23/20 06:55 White Blood Count 9.8 x10^3/uL (4.0-11.0) 5.9 x10^3/uL (4.0-11.0) Red Blood Count 3.85 x10^6/uL (4.30-5.70) 3.40 x10^6/uL (4.30-5.70) Hemoglobin 12.8 g/dL (13.0-17.5) 11.3 g/dL (13.0-17.5) Hematocrit 37.5 % (39.0-53.0) 33.2 % (39.0-53.0) Mean Corpuscular Volume 98 fL (79-100) 98 fL (79-100) Mean Corpuscular Hemoglobin 33 pg (25-35) 33 pg (25-35) Mean Corpuscular Hemoglobin Concent 34 g/dL (31-37) 34 g/dL (31-37) Red Cell Distribution Width 14.4 % (11.5-14.5) 14.2 % (11.5-14.5) Platelet Count 328 x10^3/uL (140-400) 290 x10^3/uL (140-400) Neutrophils (%) (Auto) 86 % (31-73) 77 % (31-73) Lymphocytes (%) (Auto) 8 % (24-48) 13 % (24-48) Monocytes (%) (Auto) 6 % (0-9) 9 % (0-9) Eosinophils (%) (Auto) 0 % (0-3) 1 % (0-3) Basophils (%) (Auto) 0 % (0-3) 0 % (0-3) Neutrophils # (Auto) 8.4 x10^3/uL (1.8-7.7) 4.5 x10^3/uL (1.8-7.7) Lymphocytes # (Auto) 0.8 x10^3/uL (1.0-4.8) 0.8 x10^3/uL (1.0-4.8) Monocytes # (Auto) 0.5 x10^3/uL (0.0-1.1) 0.5 x10^3/uL (0.0-1.1) Eosinophils # (Auto) 0.0 x10^3/uL (0.0-0.7) 0.0 x10^3/uL (0.0-0.7) Basophils # (Auto) 0.0 x10^3/uL (0.0-0.2) 0.0 x10^3/uL (0.0-0.2) Sodium Level 121 mmol/L (136-145) 128 mmol/L (136-145) Potassium Level 4.4 mmol/L (3.5-5.1) 4.0 mmol/L (3.5-5.1) Chloride Level 88 mmol/L (98-107) 95 mmol/L (98-107) Carbon Dioxide Level 22 mmol/L (21-32) 22 mmol/L (21-32) Anion Gap 11 (6-14) 11 (6-14) Blood Urea Nitrogen 34 mg/dL (8-26) 29 mg/dL (8-26) Creatinine 1.8 mg/dL (0.7-1.3) 1.6 mg/dL (0.7-1.3) Estimated GFR (Cockcroft-Gault) 35.8 41.0 BUN/Creatinine Ratio 19 (6-20) Glucose Level 164 mg/dL (70-99) 80 mg/dL (70-99) Lactic Acid Level 3.5 mmol/L (0.4-2.0) 0.9 mmol/L (0.4-2.0) Calcium Level 7.9 mg/dL (8.5-10.1) 7.6 mg/dL (8.5-10.1) Magnesium Level 2.5 mg/dL (1.8-2.4) Total Bilirubin 0.5 mg/dL (0.2-1.0) Aspartate Amino Transf (AST/SGOT) 31 U/L (15-37) Alanine Aminotransferase (ALT/SGPT) 44 U/L (16-63) Alkaline Phosphatase 95 U/L (46-116) Troponin I Quantitative < 0.017 ng/mL (0.000-0.055) BO-Vjm-D-Type Natriuretic Peptide 1880 pg/mL (0-449) Total Protein 6.3 g/dL (6.4-8.2) Albumin 2.1 g/dL (3.4-5.0) Albumin/Globulin Ratio 0.5 (1.0-1.7) Urine Collection Type U cath Urine Color Red Urine Clarity Turbid Urine pH 6.5 (<5.0-8.0) Urine Specific Wisdom 1.015 (1.000-1.030) Urine Protein >=300 mg/dL (NEG-TRACE) Urine Glucose (UA) Negative mg/dL (NEG) Urine Ketones (Stick) 15 mg/dL (NEG) Urine Blood Large (NEG) Urine Nitrite Positive (NEG) Urine Bilirubin Moderate (NEG) Urine Urobilinogen Dipstick 1.0 mg/dL (0.2 mg/dL) Urine Leukocyte Esterase Large (NEG) Urine RBC Tntc /HPF (0-2) Urine WBC >40 /HPF (0-4) Urine Squamous Epithelial Cells Few /LPF Urine Bacteria Many /HPF (0-FEW) Urine Hyaline Casts Moderate /HPF Urine Mucus Mod /LPF Assessment and Plan Assessmemt and Plan Problems Medical Problems: (1) Hyponatremia Status: Acute (2) Severe sepsis Status: Acute (3) Urinary tract infection Status: Acute Comment Review of Relevant I have reviewed the following items mare (where applicable) has been applied. Medications: Current Medications Medications (Trade) Dose Ordered Sig/Summer Route PRN Reason Start Time Stop Time Status Last Admin Dose Admin Sodium Chloride 1,000 ml @ 1,000 mls/hr 1X ONCE IV 12/22/20 12:30 12/22/20 13:29 DC 12/22/20 12:15 Ceftriaxone Sodium (Rocephin) 1 gm 1X ONCE IVP 12/22/20 13:00 12/22/20 13:01 DC 12/22/20 13:17 Sodium Chloride 1,000 ml @ 1,000 mls/hr 1X ONCE IV 12/22/20 13:15 12/22/20 14:14 DC 12/22/20 13:14 Lactobacillus Rhamnosus (Culturelle) 1 cap BID PO 12/22/20 21:00 12/22/20 21:14 Justifications for Admission General Conditions Other justification for admit: Urosepsis, SHEREE Other Justification PERRY GAR MD Dec 23, 2020 09:05
[2020-12-23] MEDS: cefTRIAXone IV Push 1 GM VIAL. IVP SCH (10:01)
[2020-12-23] MEDS: LACTOBACILLUS RHAMNOSUS GG 1 CAPSULE. PO SCH ×2 (10:02→21:00)
[2020-12-23 11:00] VITALS: BP 107/76
--- NOTE | 2020-12-23 14:25 | NUR ---
SS following for discharge planning. SS reviewed pt chart and discussed with pt RN. Pt is from home with family and is currently on room air. Pt on IV Rocephin. Urine cultures pending. PT/OT ordered. SS will continue to follow for discharge planning.
[2020-12-23 15:00] VITALS: BP 123/69
[2020-12-23 19:00] VITALS: BP 106/61
[2020-12-23 23:00] VITALS: BP 105/66
[2020-12-24 03:00] VITALS: BP 109/58
[2020-12-24 07:00] VITALS: BP 114/58
[2020-12-24] MEDS: cefTRIAXone IV Push 1 GM VIAL. IVP SCH (08:27)
[2020-12-24] MEDS: LACTOBACILLUS RHAMNOSUS GG 1 CAPSULE. PO SCH ×2 (08:27→21:53)
[2020-12-24 09:05] LABS: BASO % 0 % (0-3); EOS # 0.1 x10^3/uL (0.0-0.7); EOS % 1 % (0-3); HEMATOCRIT 35.4 % (39.0-53.0); HEMOGLOBIN 11.7 g/dL (13.0-17.5); LYMPH # 1.2 x10^3/uL (1.0-4.8); LYMPH % 26 % (24-48); MEAN CORPUSCULAR HEMOGLOBIN 33 pg (25-35); MEAN CORPUSCULAR HGB CONC 33 g/dL (31-37); MEAN CORPUSCULAR VOLUME 99 fL (79-100); MONO # 0.4 x10^3/uL (0.0-1.1); MONO % 9 % (0-9); NEUT # 3.1 x10^3/uL (1.8-7.7); NEUT % 63 % (31-73); PLATELET COUNT 304 x10^3/uL (140-400); RED BLOOD COUNT 3.58 x10^6/uL (4.30-5.70); RED CELL DISTRIBUTION WIDTH 14.6 % (11.5-14.5); WHITE BLOOD COUNT 4.9 x10^3/uL (4.0-11.0)
[2020-12-24 09:24] LABS: CALCIUM 8.1 mg/dL (8.5-10.1); CREATININE 1.5 mg/dL (0.7-1.3); GFR 44.2; POTASSIUM 3.9 mmol/L (3.5-5.1)
[2020-12-24] MEDS ORDERED: DOCU-109 PO (10:40)
[2020-12-24] MEDS ORDERED: CEPH500C PO (10:40)
--- NOTE | 2020-12-24 10:44 | SNU/HH DC ---
DISCHARGE WITH HOME HEALTH DISCHARGE INFORMATION: Discharge Date: Dec 25, 2020 Final Diagnosis: UTI sepsis encephalopathy urinary retention, chronic martinez Problems Medical Problems: (1) Hyponatremia Status: Acute (2) Severe sepsis Status: Acute (3) Urinary tract infection Status: Acute Condition on Discharge: Stable CODE STATUS: Code Status: DNR/DNI HOME HEALTH: Face to Face: I certify this patient is under my care and that I had a face to face encounter that meets the physician face to face encounter requirements with this patient on 12/24[]. Medical Complications: Other (UTI, marked leg weakness) RN For Eval/Treatment: Yes Physical Therapy For: Evalulation/Treatment Occupational Therapy For: Evaluation/Treatment Pt Meets Homebound Status: Limited distance walking, Psychological condition POST DISCHARGE ORDERS: Activity Instructions for Disc: Other, see below Weight Bearing Status after Di: Partial weight bearing (to NWB, usually wheelchair) Bathing Instructions: Shower-keep dressing dry Wound/Incision Care: Keep wound/cast CDI, Keep wound elevated, Change dressing FOLLOW-UP: Follow up with: DR. June one week Additional Instructions: martinez care monthly TREATMENT/EQUIPMENT ORDERS: Adaptive Equipment Issued: None (has wheelchair, ) CERTIFICATION STATEMENT: Certification Statement: Certification Statement: Based on the above finding, I certify that this patient is confined to the home and needs intermittent detention care, physical therapy and/or speech therapy, or continues to need occupational therapy.~ This patient is under my care, and I have initiated the establishment of the plan of care.~ This patient will be followed by myself or a community physician who will periodically review the plan of care. Home Meds Active Scripts Cephalexin (KEFLEX) 500 Mg Capsule, 1 CAP PO TID for UTI, #30 CAP Prov:JERMAINE BURK MD 12/24/20 Docusate Sodium (COLACE) 100 Mg Capsule, 100 MG PO DAILY PRN for CONSTIPATION, #30 EA Prov:JERMAINE BURK MD 12/24/20 Discontinued Reported Medications Hydrocodone/Apap 5-325 ([place] 5-325 TABLET) 1 Each Tablet, 1 TAB PO Q4HRS PRN for PAIN, #40 TAB 0 Refills 06/29/16 JERMAINE BURK MD Dec 24, 2020 10:44
[2020-12-24 11:00] VITALS: BP 104/64
[2020-12-24 15:00] VITALS: BP 112/62
--- NOTE | 2020-12-24 15:12 | PDOC ---
[facility] [facility] PROGRESS NOTE Date of Service DOS: DATE: 12/24/20 TIME: 15:12 Chief Complaint Chief Complaint Urosepsis SHEREE Hyponatremia History BPH Severe malnutrition Plan: Urine culture from 02/04/2019 grew Klebsiella, sensitive to Rocephin. We will continue treatment with Rocephin 1 g daily. Will follow urine cultures and blood cultures. Creatinine 1.6, EGFR 41.5, on 04/12/2016. Received fluid bolus in the ED. We will continue to monitor kidney function for improvement back to baseline. Will fluid restrict <1 L daily, every 12 hours sodium checks. Resume home medications FEN - Cardiac diet PPX - Heparin DNR Dispo - inpatient for above Patient's surrogate decision-maker is his daughter (Rose Schmidt). History of Present Illness History of Present Illness feels better plan DC in AM, tomorro 0900 Vitals/I&O Vitals/I&O: Vital Signs Date Time Temp Pulse Resp B/P (MAP) Pulse Ox O2 Delivery O2 Flow Rate FiO2 12/24/20 11:00 96.7 89 18 104/64 (77) 98 Room Air 96.7 I & O 12/23/20 12/23/20 12/24/20 15:00 23:00 07:00 Intake Total 0 ml 240 ml Output Total 500 ml 350 ml Balance -500 ml -350 ml 240 ml Physical Exam General: Alert, Oriented X3, Cooperative Heart: Regular rate Lungs: Wheezing Abdomen: Normal bowel sounds Extremities: No clubbing Labs Labs: Laboratory Tests Test 12/23/20 22:30 12/24/20 08:45 Sodium Level 123 mmol/L (136-145) 127 mmol/L (136-145) White Blood Count 4.9 x10^3/uL (4.0-11.0) Red Blood Count 3.58 x10^6/uL (4.30-5.70) Hemoglobin 11.7 g/dL (13.0-17.5) Hematocrit 35.4 % (39.0-53.0) Mean Corpuscular Volume 99 fL (79-100) Mean Corpuscular Hemoglobin 33 pg (25-35) Mean Corpuscular Hemoglobin Concent 33 g/dL (31-37) Red Cell Distribution Width 14.6 % (11.5-14.5) Platelet Count 304 x10^3/uL (140-400) Neutrophils (%) (Auto) 63 % (31-73) Lymphocytes (%) (Auto) 26 % (24-48) Monocytes (%) (Auto) 9 % (0-9) Eosinophils (%) (Auto) 1 % (0-3) Basophils (%) (Auto) 0 % (0-3) Neutrophils # (Auto) 3.1 x10^3/uL (1.8-7.7) Lymphocytes # (Auto) 1.2 x10^3/uL (1.0-4.8) Monocytes # (Auto) 0.4 x10^3/uL (0.0-1.1) Eosinophils # (Auto) 0.1 x10^3/uL (0.0-0.7) Basophils # (Auto) 0.0 x10^3/uL (0.0-0.2) Potassium Level 3.9 mmol/L (3.5-5.1) Chloride Level 95 mmol/L (98-107) Carbon Dioxide Level 23 mmol/L (21-32) Anion Gap 9 (6-14) Blood Urea Nitrogen 25 mg/dL (8-26) Creatinine 1.5 mg/dL (0.7-1.3) Estimated GFR (Cockcroft-Gault) 44.2 Glucose Level 86 mg/dL (70-99) Calcium Level 8.1 mg/dL (8.5-10.1) Assessment and Plan Assessmemt and Plan Problems Medical Problems: (1) Hyponatremia Status: Acute (2) Severe sepsis Status: Acute (3) Urinary tract infection Status: Acute Comment Review of Relevant I have reviewed the following items mare (where applicable) has been applied. Justifications for Admission General Conditions Other justification for admit: Urosepsis, SHEREE Other Justification JERMAINE BURK MD Dec 24, 2020 15:12
[2020-12-24 19:00] VITALS: BP 106/56
[2020-12-24 23:00] VITALS: BP 103/54
[2020-12-25 03:17] VITALS: BP 116/53
[2020-12-25 06:24] VITALS: BP 110/57
[2020-12-25] MEDS: LACTOBACILLUS RHAMNOSUS GG 1 CAPSULE. PO SCH (08:22)
[2020-12-25] MEDS: cefTRIAXone IV Push 1 GM VIAL. IVP SCH (08:23)
--- NOTE | 2020-12-25 09:17 | PDOC3 ---
Discharge Summary Visit Information Date of Admission: Dec 22, 2020 Date of Discharge: Dec 25, 2020 Final Diagnosis sepsis UTI SHEREE, on CKD 3, better at DC Hyponatremia History BPH, chronic urinary retention Severe malnutrition, albumin 2.1 on admit Problems Medical Problems: (1) Hyponatremia Status: Acute (2) Severe sepsis Status: Acute (3) Urinary tract infection Status: Acute Brief Hospital Course Allergies Allergies Coded Allergies Type Severity Reaction Last Updated Verified No Known Drug Allergies 06/29/16 No Vital Signs Vital Signs Date Time Temp Pulse Resp B/P (MAP) Pulse Ox O2 Delivery O2 Flow Rate FiO2 12/25/20 06:24 97.7 91 20 110/57 (74) 95 Room Air 97.7 Lab Results Laboratory Tests Test 12/23/20 22:30 12/24/20 08:45 12/24/20 20:31 12/24/20 21:00 Sodium Level 123 mmol/L (136-145) 127 mmol/L (136-145) 125 mmol/L (136-145) White Blood Count 4.9 x10^3/uL (4.0-11.0) Red Blood Count 3.58 x10^6/uL (4.30-5.70) Hemoglobin 11.7 g/dL (13.0-17.5) Hematocrit 35.4 % (39.0-53.0) Mean Corpuscular Volume 99 fL (79-100) Mean Corpuscular Hemoglobin 33 pg (25-35) Mean Corpuscular Hemoglobin Concent 33 g/dL (31-37) Red Cell Distribution Width 14.6 % (11.5-14.5) Platelet Count 304 x10^3/uL (140-400) Neutrophils (%) (Auto) 63 % (31-73) Lymphocytes (%) (Auto) 26 % (24-48) Monocytes (%) (Auto) 9 % (0-9) Eosinophils (%) (Auto) 1 % (0-3) Basophils (%) (Auto) 0 % (0-3) Neutrophils # (Auto) 3.1 x10^3/uL (1.8-7.7) Lymphocytes # (Auto) 1.2 x10^3/uL (1.0-4.8) Monocytes # (Auto) 0.4 x10^3/uL (0.0-1.1) Eosinophils # (Auto) 0.1 x10^3/uL (0.0-0.7) Basophils # (Auto) 0.0 x10^3/uL (0.0-0.2) Potassium Level 3.9 mmol/L (3.5-5.1) Chloride Level 95 mmol/L (98-107) Carbon Dioxide Level 23 mmol/L (21-32) Anion Gap 9 (6-14) Blood Urea Nitrogen 25 mg/dL (8-26) Creatinine 1.5 mg/dL (0.7-1.3) Estimated GFR (Cockcroft-Gault) 44.2 Glucose Level 86 mg/dL (70-99) Calcium Level 8.1 mg/dL (8.5-10.1) Glucose (Fingerstick) 145 mg/dL (70-99) Laboratory Tests Test 12/24/20 20:31 12/24/20 21:00 Glucose (Fingerstick) 145 mg/dL (70-99) Sodium Level 125 mmol/L (136-145) Brief Hospital Course Mr. Schmidt is a 89 old male with chronic martinez, chronic leg weakness due to spinal stenosis, admit sepsis UTI, martinez changed, Urine culture from 02/04/2019 grew Klebsiella, sensitive to Rocephin. Rocephin 1 g daily. Creatinine 1.6, Patient's surrogate decision-maker is his daughter (Rose Schmidt). Discharge Information Condition at Discharge: Improved Follow Up: Weeks Disposition/Orders: D/C to Home w/ HH Scheduled Cephalexin (Keflex) 500 Mg Capsule, 1 CAP PO TID for UTI, #30 Prescribed by: JERMAINE BURK on 12/24/20 1040 Scheduled PRN Docusate Sodium (Colace) 100 Mg Capsule, 100 MG PO DAILY PRN for CONSTIPATION, #30 Prescribed by: JERMAINE BURK on 12/24/20 1040 Discontinued Medications Hydrocodone/Apap 5-325 ([place] 5-325 Tablet) 1 Each Tablet, 1 TAB PO Q4HRS PRN for PAIN, #40 Ref 0 (Reported) Entered as Reported by: ZAHIRA RIVERA on 06/29/16 1320 Last Action: Discontinued on 12/22/20 1738 by JANNY BARLOW Patient Instructions Patient Instructions face to face on 12/24 and 12/25 time 38 miniutes coordination Justicifation of Admission Dx: Justifications for Admission: Justification of Admission Dx: Yes (sepsis) JERMAINE BURK MD Dec 25, 2020 09:17
--- NOTE | 2020-12-25 11:26 | NUR ---
Discharge Note: DOUG RENAE [address] Discharge instructions and discharge home medications reviewed with the patient and the patient's daughter and copy given. All questions have been answered and understanding verbalized. The following instructions and handouts were given: UTI, Tamez care Meds sent to pharmacy for pickle maker Follow up with PCP, Dr. June as scheduled Follow up with urologist at . Discontinued lines and drains: peripheral IV intact, patient tolerated removal, no complications noted. Patient discharged to home with home health via the patient's scooter accompanied by daughter and grandson at 0930.
== END 2020-12-25 09:30 | disposition home health service (06) | DRG 871 ==
LOC: ER 11:28 → 5 SOUTH 14:20
PROVIDERS: ADMIT Family Medicine; ATTEND Family Medicine
DX: A41.89 Other specified sepsis (principal); E43 Unspecified severe protein-calorie malnutrition; N17.9 Acute kidney failure, unspecified; E87.1 Hypo-osmolality and hyponatremia; N39.0 Urinary tract infection, site not specified; R65.20 Severe sepsis without septic shock; K04.7 Periapical abscess without sinus; N18.30 Chronic kidney disease, stage 3 unspecified; N40.1 Benign prostatic hyperplasia with lower urinary tract symptoms; Z87.440 Personal history of urinary (tract) infections; Z87.442 Personal history of urinary calculi; M19.90 Unspecified osteoarthritis, unspecified site; M48.00 Spinal stenosis, site unspecified; R33.8 Other retention of urine; Z66 Do not resuscitate; Z68.33 Body mass index [BMI] 33.0-33.9, adult; B96.1 Klebsiella pneumoniae [K. pneumoniae] as the cause of diseases classified elsewhere; K59.00 Constipation, unspecified
CPT/HCPCS: 36415; 51702; 80048; 80053; 81001; 82962; 83605; 83735; 83880; 84295; 84484; 85025; 87077; 87086; 87186; 87493; 93005; 96361; 96374; J0696; J7030; 97535-GO; 99285-25; G0378